=== PATIENT | female | born 1995 | race Caucasian/White ===

== ENCOUNTER 2021-08-24 16:17 | Outpatient (CLI) | payer MEDICAID, SELFPAY ==
[2021-08-27 19:05] LABS: HPV Reflexed? NOT INDICATED
== END 2021-08-24 23:59 | disposition short-term general hospital (02) ==
LOC: LABSPEC 16:18
PROVIDERS: PCP Pediatrics; Visit Provider Obstetrics & Gynecology
DX: Z12.4 Encounter for screening for malignant neoplasm of cervix (principal)
CPT/HCPCS: 88175; G0145

== ENCOUNTER 2021-09-17 14:37 | Outpatient (CLI) | payer MEDICAID, SELFPAY ==
[2021-09-17 16:04] LABS: Estradiol 32.7 pg/mL; Follicle Stimulating Hormone 6.9 mIU/mL; Luteinizing Hormone 4.3 mIU/mL; Prolactin 10.3 ng/mL
[2021-09-24 15:08] LABS: Testosterone, % Free 1.57 % (0.50-2.80); Testosterone, Free 0.19 ng/dL (0.10-0.85); Testosterone, Total 12 ng/dL (13-71)
[2021-09-24 17:21] LABS: Anti-Mullerian Hormone,Serum 3.68 ng/mL (.)
== END 2021-09-17 23:59 | disposition home or self-care (01) ==
LOC: WOBLAB 14:39
PROVIDERS: PCP Pediatrics; Visit Provider Obstetrics & Gynecology
DX: N91.2 Amenorrhea, unspecified (principal)
CPT/HCPCS: 36415; 82627; 82670; 83001; 83002; 83516; 84146; 84402; 84403; 82626

== ENCOUNTER 2021-10-24 14:11 | Emergency (ER) | payer MEDICAID, SELFPAY ==
[2021-10-24 14:11] VITALS: BP 129/87; PULSE 95; RESP 16; TEMP 36.1; O2SAT 98; BMI 32.3
--- NOTE | 2021-10-24 14:14 | RAD_ITS ---
STUDY: X-RAY - LEFT ANKLE REASON FOR EXAM: Female, 26 years old. PAIN INJURY TECHNIQUE: 3 view(s) of the ankle. COMPARISON: None. FINDINGS: Normal visualized distal tibia and fibula. Normal medial and lateral malleoli. Normal tibiotalar articulation and ankle mortise. Normal visualized talus and calcaneus. The visualized subtalar, talonavicular, calcaneocuboid and tarsal articulations are normal. Lateral soft tissue swelling consistent with ligamentous injury. RAD/Ankle min 3 Views IMPRESSION: No acute fracture or dislocation. Lateral soft tissue swelling consistent with ligamentous injury. Electronically Signed: Suresh Ko MD at 15:02 EDT ,
--- NOTE | 2021-10-24 15:21 | EX.ED.DYSGE1 ---
HPI History of Present Illness Chief Complaint: Lower Extremity Injury Informant: patient Onset/Context/Timing Onset: Yesterday Worsened by: use Relieved by: rest Associated Symptoms Associated Symptoms: none Narrative Narrative: She complains of pain to the lateral malleolus. No other injuries.Patient rolled her left ankle last night when she was going down steps. Prior similar symptoms: No Recent Illness/Hospitalization: No PFSH PFSH Home Medications sertraline 100 mg tablet 100 mg PO DAILY 06/12/21 [History Last Taken Unknown] Allergy/AdvReac Type Severity Reaction Status Date / Time No Known Allergies Allergy Verified 10/24/21 14:13 Social History Smoking Status: Never smoker ROS ROS ED Constitutional Constitutional ED: Denies fever(s) Eyes Eyes: Denies change in vision ENT ENT ED: Denies ear pain Cardiovascular Cardiovascular: Denies chest pain Respiratory/Chest Respiratory/Chest: Denies dyspnea Gastrointestinal Gastrointestinal: Denies abdominal pain Genitourinary Genitourinary ED: Denies dysuria Musculoskeletal Musculoskeletal: Reports arthralgias Integumentary Denies rash Neurologic Neurologic: Denies headache(s) Psychiatric Psychiatric: Denies depression Endocrine Endocrinology: Denies polyuria Allergic/Immunologic Allergic/Immunologic ED: Denies urticaria EXAM Physical Exam Const Vital Signs: 10/24/21 14:11 Temperature 96.9 F L Temperature Source Temporal Pulse Rate 95 Respiratory Rate 16 Blood Pressure 129/87 H Blood Pressure Mean 101 Pulse Ox 98 Oxygen Delivery Method Room Air Positive well nourished and well developed General Appearance ED: well developed HEENT Negative for trauma Eyes EOMs intact bilaterally Neck supple Resp normal respiratory effort Cardio regular rate Extremity Extremity Narrative: Left lateral malleolus tenderness General Extremety ED: Yes tenderness Neuro oriented x3 and no sensory deficits noted Sensorium / Orientation: alert Motor Exam: strength 5/5 throughout Psych mental status grossly normal Skin no rashes or lesions noted MDM MDM MDM Narrative Medical decision making narrative: X-rays reviewed by the radiologist and myself show no sign of fracture or other acute abnormalities. Patient will be treated with a Aircast, crutches, rest, ice, elevate, Motrin. Outpatient follow-up. Impression #1 left ankle sprain Radiography Chest X-Ray - ED: Read by ED Physician Diagnostic Testing: Clinical Impression(s) from Imaging Studies Ankle X-Ray 10/24/21 14:14 IMPRESSION: No acute fracture or dislocation. Lateral soft tissue swelling consistent with ligamentous injury. Electronically Signed: Suresh Ko MD at 15:02 EDT , Discharge Plan Triage Chief Complaint: Lower Extremity Injury ED Provider: Fadi Valentino Dx/Rx/DC Orders Instructions: ED Ankle Sprain (Adult) Prescriptions: No Action sertraline [Zoloft] 100 mg tablet 100 mg PO DAILY RF: 0 Primary Care Provider: Care Physician,No Primary Referrals: Massimo Marin MD [STAFF PHYSICIAN] - Disposition Disposition: Home, Self Care
[2021-10-24] MEDS: Ibuprofen 600 MG Tablet PO (16:08)
== END 2021-10-24 16:09 | disposition home or self-care (01) ==
PROVIDERS: Emergency Provider Emergency Medicine; Visit Provider Emergency Medicine
DX: S93.402A Sprain of unspecified ligament of left ankle, initial encounter (principal); X50.1XXA Overexertion from prolonged static or awkward postures, initial encounter; Y93.9 Activity, unspecified; Y92.9 Unspecified place or not applicable
CPT/HCPCS: 73610; 99284

== ENCOUNTER → 2022-01-04 | Outpatient (CLI) | payer MEDICAID, SELFPAY ==
--- NOTE | 2022-01-04 | EMB_PTH ---
PATIENT: KAT SUAREZ LOC: [facility] U#:[id number] AGE/SX: 26/ ROOM: RE01/04/[address]: Dr. Nessa Arriaza DO : 1995 BED: DIS: 01/04/2022 SPEC #: [id number] RECD: 01/04/22 13:45 STATUS: FAUSTINA REAntonio #: [id number] BELKYS: 01/04/22 00:[address]: Nessa Arriaza DEPT: SURGICAL PATHOLOGY RECD BY: Rahul Navarrete ENTERED: 01/04/22 13:46 SP TYPE: ENDOM BX/C KENDAL DR: No Primary Care Phys Tissues: Endometrium, NOS Procedures: Surgery Specimen Level IV HEADER OPERATION: Endometrial biopsy PRE-OP DIAGNOSIS: Abnormal uterine bleeding TISSUE SUBMITTED: Endometrial biopsy MICROSCOPIC DIAGNOSIS Endometrium, biopsy: Weakly proliferative endometrium with stromal and focal glandular breakdown. AM:dona 01/05/2022 MICROSCOPIC DESCRIPTION Slides are reviewed. GROSS DESCRIPTION Received in fixative is one container labeled with the patient's name and designated endometrial biopsy. The specimen consists of multiple fragments of hemorrhagic soft tissue that in aggregate measure 2 x 1.5 x 0.1 cm. The specimen is totally submitted in one cassette. / SJ:dona 01/04/2022 TC:5 CPT: 68665
== END | disposition home or self-care (01) ==
LOC: LABSPEC 11:57
PROVIDERS: Visit Provider Student in an Organized Health Care Education/Training Program
DX: N93.9 Abnormal uterine and vaginal bleeding, unspecified (principal)
CPT/HCPCS: 88305

== ENCOUNTER → 2023-03-09 | Outpatient (CLI) | payer MEDICAID, SELFPAY ==
[2023-03-09 11:52] LABS: hCG Titer Quant., Serum < 1 mIU/mL (1-3)
== END | disposition home or self-care (01) ==
LOC: WOBLAB 10:59
PROVIDERS: Visit Provider Nurse Practitioner Women's Health
DX: R10.2 Pelvic and perineal pain (principal)
CPT/HCPCS: 36415; 84702

== ENCOUNTER 2024-01-12 00:19 | Emergency (ER) | payer MEDICAID, SELFPAY ==
[2024-01-12 00:19] VITALS: BP 140/93; PULSE 110; RESP 17; TEMP 36.4; O2SAT 97; BMI 26.6
--- NOTE | 2024-01-12 01:13 | EDS_ITS ---
HPI History of Present Illness Chief Complaint: Dental Informant: patient and spouse/S.O. Narrative Narrative: Patient is a 28-year-old female with past medical history of anxiety/depression. She reports that she also has a history of bad teeth. She states that she has had left lower jaw discomfort for the past 1 to 2 weeks but in the last 24 hours symptoms have worsened. She denies any trauma any fevers or chills any difficulty breathing or swallowing but with worsening pain she has concern for infection and therefore comes in for evaluation. [facility] Medical History Acute otitis media, left Home Medications ?Medication ?Instructions ?Recorded ?Last Taken ?Type sertraline 100 mg tablet (Zoloft) 100 mg PO DAILY 06/12/21 Unknown History bupropion HCl 300 mg 24 hr tablet, 300 mg PO QAM 02/18/23 Unknown History extended release mupirocin 2 % topical ointment 1 applic topical TID #15 grams 02/18/23 Unknown Rx oxycodone-acetaminophen 5 mg-325 1 tab PO Q6H PRN pain 3 days #12 01/12/24 Unknown Rx mg tablet (Percocet) tabs penicillin V potassium 500 mg 500 mg PO 4X/DAY #40 tabs 01/12/24 Unknown Rx tablet Allergy/AdvReac Type Severity Reaction Status Date / Time No Known Allergies Allergy Verified 02/18/23 12:38 Social History Smoking Status: Never smoker ROS [facility] ED Constitutional Constitutional ED: Denies chills or fever(s) ENT ENT ED: Reports other Details: Positive dental pain Cardiovascular Cardiovascular: Denies chest pain Respiratory/Chest Respiratory/Chest: Denies cough or dyspnea Gastrointestinal Gastrointestinal: Denies abdominal pain, diarrhea, nausea or vomiting Genitourinary Genitourinary ED: Denies dysuria Musculoskeletal Musculoskeletal: Denies myalgias Integumentary Denies rash Neurologic Neurologic: Denies headache(s) Hematologic/Lymphatic Hematologic/Lymphatic: Denies easy bleeding or easy bruising EXAM Physical Exam Const Vital Signs: 01/12/24 00:19 01/12/24 01:25 Temperature 97.6 F L 97.1 F L Temperature Source Temporal Pulse Rate 110 H 100 Respiratory Rate 17 18 Blood Pressure 140/93 H 136/70 H Blood Pressure Mean 108 92 Pulse Ox 97 96 Oxygen Delivery Method Room Air Positive well nourished and well developed General Appearance ED: well developed; Negative for pallor HEENT Reports moist mucous membranes HEENT Narrative: No tongue or lip swelling no oral lesions no airway edema or compromise. Patient does have soft tissue swelling along the left lower jaw with tenderness to palpation at the site without overlying erythema or warmth. No signs of ANUG noted. No obvious dental abscess present. Eyes PERRL and EOMs intact bilaterally Neck supple Neck Narrative: Positive anterior cervical adenopathy No brawny edema in the submental space to suggest Otis's angina Resp normal respiratory effort and clear to auscultation bilaterally Cardio regular rate and regular rhythm Extremity normal to inspection Neuro oriented x3, CN's II-XII intact bilaterally and no sensory deficits noted Sensorium / Orientation: alert Motor Exam: strength 5/5 throughout Psych mental status grossly normal Skin no rashes or lesions noted and no wounds General Skin Exam: Negative for jaundice or pallor MDM MDM MDM Narrative Medical decision making narrative: Patient presented to the ER hypertensive but otherwise with stable vitals. She reported few weeks of mild dental discomfort and worse in the last 24-hour. Differential diagnosis is for dental abscess versus Otis angina versus pharyngitis versus ANUG. Patient's exam does not show signs of ANUG or any brawny edema in the submental space to suggest Otis's angina. Also patient has no physical exam findings in the posterior pharynx to suggest infection. With the increased pain history of dental caries and mild soft tissue swelling to the left jaw this is most likely the start of an underlying dental infection. As there is no obvious abscess there is no need for incision and drainage and as there is no signs of systemic infection there is no need for it imaging or laboratory studies. Patient replaced on antibiotics and is otherwise safe for discharge History & Record Review Discussion w/independent historian: Patient and Significant other Discharge Plan Triage Chief Complaint: Dental ED Provider: Eugene Snyder Dx/Rx/DC Orders Clinical Impression: Dental infection, Pain, dental, Anxiety and depression Instructions: Dental Abscess, ED Dental Pain Prescriptions: New penicillin V potassium 500 mg tablet 500 mg PO 4X/DAY Qty: 40 0RF oxycodone-acetaminophen [Percocet] 5-325 mg tablet 1 tab PO Q6H PRN (Reason: pain) 3 Days Qty: 12 0RF No Action sertraline [Zoloft] 100 mg tablet 100 mg PO DAILY bupropion HCl 300 mg tablet extended release 24 hr 300 mg PO QAM mupirocin 2 % ointment 1 applic topical TID Qty: 15 0RF Primary Care Provider: Care Physician,No Primary Referrals: Care Physician,No Primary [Primary Care Provider] - Activity Restrictions/Additional Instructions: Please follow-up with your dentist for repeat evaluation and for further treatment options. Take the antibiotic as directed to resolve the infection and return to the ER should you have any further concerns Print Language: Nigerien Disposition Disposition: Home, Self Care Discharge Date/Time: 01/12/24 01:26
[2024-01-12] MEDS: Penicillin Vk 250 MG Tablet 500 MG PO (01:23)
[2024-01-12] MEDS: Oxycodone/Apap 5/325 Tablet PO (01:23)
[2024-01-12 01:25] VITALS: BP 136/70; PULSE 100; RESP 18; TEMP 36.2; O2SAT 96
== END 2024-01-12 01:26 | disposition home or self-care (01) ==
PROVIDERS: Emergency Provider Emergency Medicine; Visit Provider Emergency Medicine
DX: K04.7 Periapical abscess without sinus (principal); F41.9 Anxiety disorder, unspecified; F32.A Depression, unspecified; Z79.899 Other long term (current) drug therapy; K08.89 Other specified disorders of teeth and supporting structures
CPT/HCPCS: 99282

== ENCOUNTER 2024-01-29 14:26 | Emergency (ER) | payer MEDICAID, SELFPAY ==
--- NOTE | 2024-01-29 14:28 | ED.RN ---
Pt here for tooth pain while out to eat, states I have a hole in my tooth. Pt states she can't see dentist at [facility] due to missed appts. After hearing ED has a current wait for an ED room, pt decided to try urgent care. Pt voices understanding to return if needed.
== END 2024-01-29 14:28 | disposition left against medical advice (07) ==
LOC: ED 14:40
DX: Z00.00 Encounter for general adult medical examination without abnormal findings (principal)

== ENCOUNTER 2024-03-16 06:31 | Emergency (ER) | payer MEDICAID, SELFPAY ==
[2024-03-16 06:33] VITALS: BP 137/67; PULSE 100; RESP 16; TEMP 36.6; O2SAT 99
[2024-03-16 07:03] LABS: Bacteria 0 SEEN /hpf (None Seen); Mucous, Urine 0 SEEN /hpf (<or=2+); Red Blood Cells-Urine 0 SEEN /hpf (0-5); Squamous Epithelial Cells - UA 0 SEEN /hpf (5-10); White Blood Cells 0 SEEN /hpf (0-5)
[2024-03-16 07:13] LABS: Color, Urine Yellow (Yellow); Glucose, Dipstick Normal (Normal); Ketone-Dipstick Negative (Negative); Leukocyte Esterase-Dipstick Negative /ul (Negative); Nitrite-Dipstick Negative (Negative); Occult Blood-Urine 250 /ul (Negative); Protein-Dipstick 15 mg/dl (Negative); Specific Gravity, Urine 1.015 (1.002-1.030); Urine Bilirubin Dipstick Negative (Negative); Urine Clarity Clear (Clear); Urine Urobilinogen Normal (Normal); Urine pH 6.5 (5.0 - 8.0)
[2024-03-16 07:21] LABS: Absolute Lymphocyte Count 2.75 X10^3/uL (0.83-4.51); Absolute Neutrophil Count 7.8 X10^3/uL (2.0-7.7); Basophil% 0.8 % (0-1); Eosinophil# 0.36 X10^3/uL; Hematocrit 41.3 % (37-47); Hemoglobin 13.4 g/dL (12.0-15.0); Lymphocyte # 2.75 X10^3/ul (0.83-4.51); Lymphocyte % 23.3 % (19-41); Mean Corp Hgb Conc 32.4 g/dL (32-36); Mean Corpuscular Hgb 27.3 pg (27.0-32.0); Mean Corpuscular Volume 84.3 fL (81-99); Mean Platelet Vol. 9.3 fl (6.2-12.0); Monocyte# 0.75 X10^3/uL; Monocyte% 6.4 % (0-10); NRBC Flagged by Analyzer 0 % (0-5); Neutrophil # 7.79 X10^3/uL (2.7-7.7); Platelet Count 425 K/mm3 (150-450); RBC Distribution Width CV 14.7 % (11.6-14.6); RBC Distribution Width SD 45.2 fl (35.1-43.9); White Blood Count 11.8 K/mm3 (4.4-11.0)
--- NOTE | 2024-03-16 07:33 | ED.VIS.FEGU ---
HPI HPI - Female History of Present Illness Chief Complaint: Vag Bld, Preg Informant: patient Narrative Narrative: Patient is a 28-year-old female G3, P1 presenting with vaginal bleeding concern for miscarriage. Patient's last menstrual period was February 07. She had a positive test on March 07. She noticed as crampy abdominal pain and vaginal bleeding started at 1 AM. States the pain is mostly in her right side. States she has some pain that radiates down to her thigh and into her toe. She is having some associated back pain. She has some mild dysuria but states is more pelvic pain with urination and not actual painful urination. She denies any passage of clots. States the bleeding has been bright red. She feels like it is of beginning of her period. Denies any fever or lightheadedness. Denies any back injuries. No other complaints or concerns at this time. Has not established yet for this but is planning on following with Dr. Noel Schwartz. [facility] Medical History Acute otitis media, left Allergy/AdvReac Type Severity Reaction Status Date / Time No Known Allergies Allergy Verified 03/16/24 06:33 Social History Smoking Status: Never smoker ROS ROS ED Constitutional Constitutional ED: Denies chills or fever(s) Gastrointestinal Gastrointestinal: Reports abdominal pain; Denies nausea or vomiting Genitourinary Genitourinary ED: Reports other Details: vaginal bleeding ; Denies dysuria Musculoskeletal Musculoskeletal: Reports other Details: low back pain , right thigh pain Integumentary Denies rash Neurologic Neurologic: Denies headache(s) Psychiatric Psychiatric: Denies anxiety Hematologic/Lymphatic Hematologic/Lymphatic: Denies easy bleeding or easy bruising EXAM Physical Exam Const Vital Signs: 03/16/24 06:33 Temperature 97.9 F Temperature Source Temporal Pulse Rate 100 Respiratory Rate 16 Blood Pressure 137/67 H Blood Pressure Mean 90 Pulse Ox 99 Oxygen Delivery Method Room Air Positive well nourished and well developed General Appearance ED: well developed and NAD; Negative for pallor HEENT Reports moist mucous membranes Neck supple Resp normal respiratory effort Cardio regular rate and regular rhythm GI normal to inspection, nondistended, normoactive bowel sounds and soft to palpation GI Narrative: Very mild tenderness palpation in the suprapubic/right lower quadrant Narrative: Chemistry Technologist pelvic exam performed. Normal external genitalia. Patient does have a clot in the cervix which is removed. Very mild oozing of pink blood present. Os appears closed. No cervical motion tenderness. No adnexal tenderness on exam. Back/Spine no CVA tenderness Extremity normal to inspection and full ROM Neuro oriented x3 Sensorium / Orientation: alert Motor Exam: Negative for general weakness Psych mental status grossly normal Skin no rashes or lesions noted General Skin Exam: Negative for pallor MDM MDM MDM Narrative Medical decision making narrative: Patient evaluated for vaginal bleeding in early . She is 5 weeks 2 days by last menstrual period. Chart review shows that she is Rh+ and does not require RhoGAM. hCG is elevated at 10,524. Bedside ultrasound performed by myself shows single intrauterine gestation with yolk sac and pole. I do not appreciate a heartbeat at this time but it is likely too early to see this. Urinalysis is not consistent infection. Case is discussed with HOLTER TECHNICIAN on-call, Dr. Castle. Patient is given outpatient prescription for repeat quant on Monday (48 hours from now). Counseled on pelvic rest until follow-up. Will follow-up outpatient. Given return precautions. Patient verbalized agreement understand this plan. At this time abdominal exam is benign and she is hemodynamically stable. Low suspicion for hemorrhagic shock, active miscarriage based on close cervix or ectopic based on ultrasound with no free fluid and intrauterine gestation appreciated. Lab Data Attestation: I reviewed the patient's lab results. Labs: Laboratory Results - last 24 hr 03/16/24 03/16/24 07:00 07:16 WBC 11.8 H RBC 4.90 Hgb 13.4 Hct 41.3 MCV 84.3 MCH 27.3 MCHC 32.4 RDW Std Deviation 45.2 H RDW Coeff of Wilfredo 14.7 H Plt Count 425 MPV 9.3 Immature Gran % (Auto) 0.500 Neut % (Auto) 66.0 Lymph % (Auto) 23.3 [place] % (Auto) 6.4 Eos % (Auto) 3.0 Baso % (Auto) 0.8 Absolute Neuts (auto) 7.8 H Absolute Lymphs (auto) 2.75 Nucleated RBC % 0 HCG, Quant 67895 H Urine Color Yellow Urine Clarity Clear Urine pH 6.5 Ur Specific [place] 1.015 Urine Protein 15 H Urine Glucose (UA) Normal Urine Ketones Negative Urine Occult Blood 250 H Urine Nitrite Negative Urine Bilirubin Negative Urine Urobilinogen Normal Ur Leukocyte Esterase Negative Urine RBC 0 SEEN Urine WBC 0 SEEN Ur Squamous Epith Cells 0 SEEN Urine Bacteria 0 SEEN Urine Mucus 0 SEEN Discharge Plan Triage Chief Complaint: Vag Bld, Preg ED Provider: Ayana Irene Dx/Rx/DC Orders Clinical Impression: Vaginal bleeding affecting early Instructions: Bleeding During Early , Miscarriage Threatened Other Ambulatory Orders: HCG BETA-SUBUNIT QUANT. (Routine) Timeframe: 20240318 Facility: [facility] - Location: Laboratory Ordered By: Dr. Ayana Irene Primary Care Provider: Care Physician,No Primary Referrals: Amanda Hill DO [Med Staff - Active Staff] - Care Physician,No Primary [Primary Care Provider] - Activity Restrictions/Additional Instructions: Call the office on Monday to schedule appointment. They will try to get you in for an ultrasound later in the week. Given given a prescription for repeat blood work. Please go on Monday or Monday for this. Avoid intercourse until you follow-up with HOLTER TECHNICIAN. Drink plenty fluids. If you have progression worsening symptoms please return to the emergency room. Print Language: Bangladeshi Disposition Disposition: Home, Self Care Discharge Date/Time: 03/16/24 09:27
[2024-03-16 08:04] LABS: hCG Titer Quant., Serum 10524 mIU/mL (1-3)
== END 2024-03-16 09:27 | disposition home or self-care (01) ==
PROVIDERS: Emergency Provider Emergency Medicine; Visit Provider Emergency Medicine
DX: O20.9 Hemorrhage in early pregnancy, unspecified (principal); Z3A.01 Less than 8 weeks gestation of pregnancy
CPT/HCPCS: 36415; 81001; 84702; 85025; 99282

== ENCOUNTER → 2024-04-15 | Outpatient (CLI) | payer MEDICAID, SELFPAY ==
[2024-04-15 12:37] LABS: Absolute Lymphocyte Count 1.48 X10^3/uL (0.83-4.51); Absolute Neutrophil Count 5.8 X10^3/uL (2.0-7.7); Basophil# 0.06 X10^3/uL; Basophil% 0.7 % (0-1); Eosinophils% 3.6 % (0-5); Hematocrit 38.4 % (37-47); Hemoglobin 12.6 g/dL (12.0-15.0); Lymphocyte # 1.48 X10^3/ul (0.83-4.51); Lymphocyte % 17.6 % (19-41); Mean Corp Hgb Conc 32.8 g/dL (32-36); Mean Corpuscular Hgb 28.1 pg (27.0-32.0); Mean Corpuscular Volume 85.7 fL (81-99); Mean Platelet Vol. 9.7 fl (6.2-12.0); Monocyte# 0.69 X10^3/uL; Monocyte% 8.2 % (0-10); NRBC Flagged by Analyzer 0 % (0-5); Neutrophil # 5.82 X10^3/uL (2.7-7.7); Neutrophil % 69.2 % (47-70); Platelet Count 392 K/mm3 (150-450); RBC Distribution Width CV 14.8 % (11.6-14.6); RBC Distribution Width SD 46.8 fl (35.1-43.9); Red Blood Count 4.48 M/mm3 (4.2-5.4); White Blood Count 8.4 K/mm3 (4.4-11.0)
[2024-04-15 13:39] LABS: HIV - WCH Non-Reactive (Nonreactive); Hepatitis B Surface Antigen Non-Reactive (Nonreactive); Hepatitis C Antibody Non-Reactive (Nonreactive); Rubella IgG Reactive (Nonreactive); Syphilis Antibodies Non-reactive
[2024-04-15 15:23] LABS: Amphetamine Urine VISTA NEGATIVE (<1000 ng/mL); Barbiturate Urine VISTA NEGATIVE (< 200 ng/mL); Benzodiazepine Urine VISTA NEGATIVE (< 200 ng/mL); Cocaine Urine VISTA NEGATIVE (< 300 ng/mL); Ecstacy Urine VISTA NEGATIVE (< 500 ng/mL); Methadone Urine VISTA NEGATIVE (< 300 ng/mL); PCP Urine VISTA NEGATIVE (< 25 ng/mL); THC Urine VISTA NEGATIVE (< 50 ng/mL); Vista UDS pH Range 5
[2024-04-18 06:10] LABS: Chlamydia By Nucleic Acid AMP Negative (Negative); Gonococcus By Nucleic Acid AMP Negative (Negative)
== END | disposition home or self-care (01) ==
PROVIDERS: Referring Provider Obstetrics & Gynecology; Visit Provider Obstetrics & Gynecology
DX: O99.320 Drug use complicating pregnancy, unspecified trimester (principal); F12.90 Cannabis use, unspecified, uncomplicated; O09.90 Supervision of high risk pregnancy, unspecified, unspecified trimester; Z3A.00 Weeks of gestation of pregnancy not specified
CPT/HCPCS: 36415; 80307; 85025; 86703; 86762; 86780; 86803; 86850; 86900; 86901; 87086; 87088; 87340; 87491; 87591

== ENCOUNTER → 2024-05-13 | Outpatient (CLI) | payer MEDICAID, SELFPAY | END | disposition home or self-care (01) | LOC: WOBLAB 15:33 | PROVIDERS: Referring Provider Advanced Practice Midwife; Visit Provider Advanced Practice Midwife | DX: Z34.01 Encounter for supervision of normal first pregnancy, first trimester (principal) | CPT/HCPCS: 36415 ==

== ENCOUNTER 2024-05-30 09:19 | Emergency (ER) | payer MEDICAID, SELFPAY ==
[2024-05-30 09:21] VITALS: BP 118/70; PULSE 109; RESP 18; TEMP 36.9; O2SAT 99; BMI 28.8
--- NOTE | 2024-05-30 10:14 | EDS_ITS ---
HPI History of Present Illness Chief Complaint: Nausea/Vomiting Informant: patient Narrative Narrative: 17-week gestation followed by Dr. Nuñez presents to the history productive cough fever muscle aches. Sick contacts with sick mother's family who had pneumonia. she had 1 emesis yesterday no hematemesis. No diarrhea. No urinary symptoms. No abdominal pain. No allergies. On and off sickness this fall. PFSH PFS Medical History 16 weeks gestation of Kidney infection Hemorrhagic shock complicated by shock Elective Hemorrhage following tonsillectomy and adenoidectomy Acute otitis media, left Home Medications ?Medication ?Instructions ?Recorded ?Last Taken ?Type multivitamin no.47-iron fum 27 1 cap PO DAILY 04/05/24 Unknown History mg-folate no.1 1 mg-dha 300 mg capsule (PNV-DHA) benzonatate 200 mg capsule 200 mg PO TID PRN cough #20 caps 05/28/24 Unknown Rx ondansetron 4 mg disintegrating 4 mg PO Q8H PRN PRN Nausea #10 tabs 05/30/24 Unknown Rx tablet Allergy/AdvReac Type Severity Reaction Status Date / Time No Known Allergies Allergy Verified 05/30/24 09:20 Surgical History H/O emergency section History of cholecystectomy H/O dilation and curettage [place] teeth extracted Social History adopted: Yes (after parents ) household members: spouse and children number of children: 1 current occupational status: unemployed current occupational exposures/hazards: No pets and animals: Yes pets and animals: dog(s) history of recent travel: No sexually active: Yes Smoking Status: Current every day smoker tobacco type: cigarettes quit status: considering quitting alcohol intake: never substance use type: marijuana well-balanced diet: daily or most days caffeine: No eating out: 1-3 times/week during the past year weight has: decreased > 10 lbs what type of physical activity do you participate in: walking frequency: daily duration: 45-60 minutes/day jessika/congregation: [employer] seatbelt use: sometimes do you feel safe at home: Yes additional social history: Dwayne ALMEIDA ED Constitutional Constitutional ED: Reports fever(s); Denies chills or sweats Eyes Eyes: Denies change in vision ENT ENT ED: Denies dysphagia or sore throat Cardiovascular Cardiovascular: Denies chest pain, leg edema, palpitations or racing heartbeat Respiratory/Chest Respiratory/Chest: Reports cough; Denies dyspnea or dyspnea on exertion Gastrointestinal Gastrointestinal: Reports vomiting; Denies abdominal pain, diarrhea or nausea Genitourinary Genitourinary ED: Denies dysuria, hematuria or urinary frequency Musculoskeletal Musculoskeletal: Denies back pain, extremity pain or neck pain Integumentary Denies rash or wounds Neurologic Neurologic: Denies headache(s), paresthesias or weakness EXAM Physical Exam Const Vital Signs: 05/30/24 09:21 05/30/24 11:20 05/30/24 12:44 Temperature 98.4 F 97.8 F Temperature Source Oral Pulse Rate 109 H 72 92 Respiratory Rate 18 18 16 Blood Pressure 118/70 128/75 H 128/75 H Blood Pressure Mean 86 92 92 Pulse Ox 99 98 Oxygen Delivery Method Room Air Positive well nourished and well developed General Appearance ED: well developed and NAD HEENT Reports moist mucous membranes normocephalic and atraumatic Eyes EOMs intact bilaterally and conjunctivae normal General Eye ED: Yes normal appearance of both eyes Neck no lymphadenopathy and supple General: Negative for tenderness Chest Wall Chest: Negative for tenderness Resp normal respiratory effort and normal air movement Effort and Inspection: symmetric chest movement; Negative for respiratory distress Cardio regular rhythm and no murmurs Rate: tachycardic Peripheral Pulses: pulses 2+ throughout GI normal to inspection, nondistended, normoactive bowel sounds and non-tender Palpation: Negative for guarding or rebound tenderness present Back/Spine no CVA tenderness and no thoracic nor lumbar tenderness Extremity normal to inspection General Extremety ED: Negative for edema or tenderness General Extremity: Negative for edema Neuro oriented x3 and no sensory deficits noted Sensorium / Orientation: awake and alert Skin no rashes or lesions noted and no wounds MDM MDM MDM Narrative Medical decision making narrative: Interventions / MDM: Differential diagnosis: Viral URI, second trimester , vomiting in pregn tho, dehydration Diagnosis considered but do not suspect: Pneumonia however chest x-ray negative My EKG interpretation: N/A Imaging independently reviewed and interpreted by myself: 2 view chest x-ray: No acute process. External documents reviewed: N/A Test considered but not ordered:N/A ED course: Afebrile in the ED slight tachycardia at 109 on triage. Nontoxic. Triage blood draws were obtained, will check urine chest x-ray nasal swab sent for further evaluation. Gentle fluids and Zofran ordered. Bedside ultrasound positive movement heart tone 141. Chest x-ray negative. Nasal swabs negative. Discussed viral syndrome with the patient. Nausea improved. Heart rate improved. Labs had a white count 14.5. Creatinine 0.39. Urine was contaminated with squamous cells with 25 leukocytes. Sent for urine cultures. Prescription Zofran to her pharmacy. She continue oral fluids. She will monitor symptoms. Outpatient follow-up. All questions were answered. Re-evaluation: stable Disposition discussed with patient/family/significant other: Patient Case discussed with consulting clinician: N/A This note was generated with Magin dictation software. It may contain incorrect words, spelling, and punctuation that were not noted in checking the note before signing. Lab Data Attestation: I reviewed the patient's lab results. Labs: Laboratory Results - last 24 hr 05/30/24 05/30/24 10:05 10:30 WBC 14.5 H RBC 3.82 L Hgb 11.4 L Hct 33.3 L MCV 87.2 MCH 29.8 MCHC 34.2 RDW Std Deviation 44.4 H RDW Coeff of Wilfredo 14.0 Plt Count 380 MPV 9.4 Immature Gran % (Auto) 1.400 H Neut % (Auto) 78.4 H Lymph % (Auto) 10.5 L [place] % (Auto) 5.6 Eos % (Auto) 3.6 Baso % (Auto) 0.5 Absolute Neuts (auto) 11.4 H Absolute Lymphs (auto) 1.52 Nucleated RBC % 0 Sodium 138 Potassium 3.3 L Chloride 108 H Carbon Dioxide 24.0 Anion Gap 6 BUN 6 L Creatinine 0.39 L Estim Creat Clear Calc 178.67 Est GFR (MDRD) Af Amer 254 Est GFR (MDRD) Non-Af 210 BUN/Creatinine Ratio 15.5 Glucose 92 Calcium 8.8 Urine Color Yellow Urine Clarity Sl. Cloudy Urine pH 6.5 Ur Specific [place] 1.015 Urine Protein 15 H Urine Glucose (UA) Normal Urine Ketones 5 H Urine Occult Blood 10 H Urine Nitrite Negative Urine Bilirubin Negative Urine Urobilinogen 1 H Ur Leukocyte Esterase 25 H Urine RBC 0 SEEN Urine WBC 0 SEEN Ur Squamous Epith Cells 10-25 SEEN Urine Bacteria 0 SEEN Urine Mucus 0 SEEN Discharge Plan Triage Chief Complaint: Nausea/Vomiting ED Provider: Boby West Dx/Rx/DC Orders Clinical Impression: Viral URI with cough, 17 weeks gestation of , Vomiting during Instructions: 2nd Trimester Adapt, ED URI, Viral, No Abx (Adult) Prescriptions: New ondansetron 4 mg tablet,disintegrating 4 mg PO Q8H PRN PRN (Reason: Nausea) Qty: 10 0RF No Action PNV-DHA 27 mg iron-1 mg -300 mg capsule 1 cap PO DAILY benzonatate 200 mg capsule 200 mg PO TID PRN (Reason: cough) Qty: 20 0RF Primary Care Provider: Care Physician,No Primary Referrals: Amanda Hill DO [Med Staff - Active Staff] - 1-2 Weeks Care Physician,No Primary [Primary Care Provider] - Activity Restrictions/Additional Instructions: heart tone 141 by ultrasound. COVID, influenza, RSV negative. Chest x- ray negative. Labs are stable. Urine culture sent. Use nausea medicine as needed. Continue oral fluids for hydration. Print Language: [place] Rican Disposition Disposition: Home, Self Care Discharge Date/Time: 05/30/24 12:45
[2024-05-30] MEDS: Ondansetron 4 MG/2 ML Vial IV (10:22)
[2024-05-30 10:23] LABS: Absolute Lymphocyte Count 1.52 X10^3/uL (0.83-4.51); Absolute Neutrophil Count 11.4 X10^3/uL (2.0-7.7); Basophil# 0.07 X10^3/uL; Basophil% 0.5 % (0-1); Eosinophil# 0.52 X10^3/uL; Eosinophils% 3.6 % (0-5); Hematocrit 33.3 % (37-47); Hemoglobin 11.4 g/dL (12.0-15.0); Lymphocyte # 1.52 X10^3/ul (0.83-4.51); Lymphocyte % 10.5 % (19-41); Mean Corp Hgb Conc 34.2 g/dL (32-36); Mean Corpuscular Hgb 29.8 pg (27.0-32.0); Mean Corpuscular Volume 87.2 fL (81-99); Mean Platelet Vol. 9.4 fl (6.2-12.0); Monocyte# 0.81 X10^3/uL; Monocyte% 5.6 % (0-10); NRBC Flagged by Analyzer 0 % (0-5); Neutrophil # 11.42 X10^3/uL (2.7-7.7); Neutrophil % 78.4 % (47-70); Platelet Count 380 K/mm3 (150-450); RBC Distribution Width SD 44.4 fl (35.1-43.9); Red Blood Count 3.82 M/mm3 (4.2-5.4); White Blood Count 14.5 K/mm3 (4.4-11.0)
[2024-05-30] MEDS: 0.9% Normal Saline (500mL Bag) 500 ML 1000 ML IV (10:25)
--- NOTE | 2024-05-30 10:30 | RAD_ITS ---
INDICATION: cough -- shield abd, 17 wks EXAMINATION/TECHNIQUE: X-RAY - XR Chest 2 Views COMPARISON: No relevant prior comparison study available FINDINGS: LINES/DEVICES: None. LUNGS: No consolidation, edema or effusion. No pneumothorax. MEDIASTINUM AND CARDIOVASCULAR STRUCTURES: Cardiac silhouette not enlarged. Central airways and mediastinal contour are unremarkable. BONES AND SOFT TISSUES: Unremarkable. RAD/Chest PA and Lateral IMPRESSION: No radiographic evidence of acute cardiopulmonary disease. Electronically Signed: Shirlene Acharya MD at 10:46 EDT ,
[2024-05-30 10:34] LABS: Anion Gap 6 (5-15); BUN 6 mg/dL (7-18); BUN/Creat Ratio 15.5 RATIO (10-20); Calcium,Total 8.8 mg/dL (8.5-10.1); Chloride 108 mmol/L (98-107); Creatinine, Serum 0.39 mg/dL (0.55-1.02); EST Glomerular Filtration Rate 210 mL/min (>60); Est Glom Filt Rate - Afr Amer 254 mL/min (>60); Estimated Creatinine Clearance 178.67 ml/min; Glucose 92 mg/dL (74-106); Potassium 3.3 mmol/L (3.5-5.1); Sodium Level 138 mmol/L (136-145)
[2024-05-30 10:35] LABS: Bacteria 0 SEEN /hpf (None Seen); Mucous, Urine 0 SEEN /hpf (<or=2+); Red Blood Cells-Urine 0 SEEN /hpf (0-5); White Blood Cells 0 SEEN /hpf (0-5)
[2024-05-30 10:36] LABS: Color, Urine Yellow (Yellow); Glucose, Dipstick Normal (Normal); Ketone-Dipstick 5 mg/dl (Negative); Leukocyte Esterase-Dipstick 25 /ul (Negative); Nitrite-Dipstick Negative (Negative); Occult Blood-Urine 10 /ul (Negative); Protein-Dipstick 15 mg/dl (Negative); Specific Gravity, Urine 1.015 (1.002-1.030); Urine Bilirubin Dipstick Negative (Negative); Urine Clarity Sl. Cloudy (Clear); Urine Urobilinogen 1 mg/dl (Normal); Urine pH 6.5 (5.0 - 8.0)
[2024-05-30 10:43] LABS: Squamous Epithelial Cells - UA 10-25 SEEN /hpf (5-10)
[2024-05-30 11:20] VITALS: BP 128/75; PULSE 72; RESP 18
[2024-05-30 12:44] VITALS: BP 128/75; PULSE 92; RESP 16; TEMP 36.6; O2SAT 98
== END 2024-05-30 12:45 | disposition home or self-care (01) ==
PROVIDERS: Emergency Provider Emergency Medicine; Visit Provider Emergency Medicine
DX: O21.9 Vomiting of pregnancy, unspecified (principal); O99.512 Diseases of the respiratory system complicating pregnancy, second trimester; J06.9 Acute upper respiratory infection, unspecified; Z3A.17 17 weeks gestation of pregnancy; F17.210 Nicotine dependence, cigarettes, uncomplicated; O99.332 Smoking (tobacco) complicating pregnancy, second trimester; Z90.49 Acquired absence of other specified parts of digestive tract; R50.9 Fever, unspecified; O26.892 Other specified pregnancy related conditions, second trimester
CPT/HCPCS: 71046; 80048; 81001; 85025; 87086; 87631; 96361; 96374; 99283; J2405

== ENCOUNTER 2024-07-16 16:00 | Outpatient (CLI) | payer MEDICAID, SELFPAY ==
[2024-07-16 16:12] VITALS: BP 129/63; PULSE 87; RESP 18; TEMP 36.7
[2024-07-16 16:27] VITALS: BMI 29.0
[2024-07-16] MEDS: Acetaminophen 500 MG Tablet 1000 MG PO (16:50)
[2024-07-16] MEDS: cycloBENZAPRine HCl 5 MG TABLET PO (16:57)
[2024-07-16 17:03] LABS: Color, Urine Yellow (Yellow); Glucose, Dipstick Normal (Normal); Ketone-Dipstick Negative (Negative); Leukocyte Esterase-Dipstick Negative /ul (Negative); Nitrite-Dipstick Negative (Negative); Occult Blood-Urine Negative /ul (Negative); Protein-Dipstick Negative (Negative); Urine Bilirubin Dipstick Negative (Negative); Urine Clarity Clear (Clear); Urine Urobilinogen Normal (Normal)
[2024-07-16 17:35] LABS: Fetal Fibronectin Negative; Record Kit Lot#, fFN D4035
--- NOTE | 2024-07-19 07:56 | OB.TRI.NOTE ---
HPI - General HPI Narrative KAT SUAREZ, is a 28 y/o @ 23 weeks 6 days gestation who presents to L&D with back pain and lower abdominal pain. She is worried about labor. Her baby has gastroschisis and she is being followed by MFM. She denies loss of fluid, vaginal bleeding, or dec fm. Maternal Data Information ARMEN Calculator Estimated Delivery Date Method Current WG Current Estimate 11/06/24 Ultrasound #1 24w 2d Other Estimates 11/14/24 LMP (Certain) 23w 1d PFSH PFSH Medical History 16 weeks gestation of Kidney infection Hemorrhagic shock complicated by shock Elective Hemorrhage following tonsillectomy and adenoidectomy Acute otitis media, left Home Medications ?Medication ?Instructions ?Recorded ?Last Taken ?Type multivitamin no.47-iron fum 27 1 cap PO DAILY 04/05/24 Unknown History mg-folate no.1 1 mg-dha 300 mg capsule (PNV-DHA) ondansetron 4 mg disintegrating 4 mg PO Q6H PRN nausea and 07/18/24 Unknown Rx tablet vomiting #10 tabs Allergy/AdvReac Type Severity Reaction Status Date / Time No Known Allergies Allergy Verified 07/18/24 13:09 Surgical History H/O emergency section History of cholecystectomy H/O dilation and curettage [place] teeth extracted Social History adopted: Yes (after parents ) household members: spouse and children number of children: 1 current occupational status: unemployed current occupational exposures/hazards: No pets and animals: Yes pets and animals: dog(s) history of recent travel: No sexually active: Yes Smoking Status: Current every day smoker tobacco type: cigarettes quit status: considering quitting alcohol intake: never substance use type: marijuana well-balanced diet: daily or most days caffeine: No eating out: 1-3 times/week during the past year weight has: decreased > 10 lbs what type of physical activity do you participate in: walking frequency: daily duration: 45-60 minutes/day jessika/presybeterian: Jainism seatbelt use: sometimes do you feel safe at home: Yes additional social history: Dwayne History 3 Elective abortions 1 Hx Para 1 Spontaneous abortions Hx # Term Pregnancies Ectopic pregnancies Hx # Pregnancies Multiple births # of living children 1 Past Pregnancies Del. Date Name GA/Weeks Outcome Route Bth Weight Gen Labor Lgth Anesthesia Del Locatn Provider FOB 12/19/19 Nuvia 40 live - full term 6#4oz Female epidural David [place] Dwayne Delivery Date: 12/19/19 Last Updated by: Angelika Jeronimo emergency c section, decels,cord around neck, meconium Visit Details Expected Delivery Route/Plan patient counseled regarding risks/benefits of trial of labor versus repeat . ACOG/uptodate education given to patient. [] % likelihood of success per calculator TOLAC consent form signed: [] Labor Preferences- CB/BF classes: [] labor support person: [] labor intervention preferences: [] pain management options preferred: [] cut cord/dad catch: [] : [] PP control planned: [] discussed possible routes of delivery and associated risks: [] special requests: [] Plans Covid status: [] Flu vaccine: [] Tdap vaccine: [] Rhogam: [] LARC form signed: [] Problem list reviewed and updated with the most current plan of care details and appropriate orders placed. Relevant counseling for the gestational age provided. Continue routine care and follow up unless otherwise noted in visit notes/problem list details OB Flowsheet Initial Weight: Not Recorded Date <del>?</del> EGA Weight BP Urine Prot <del>?</del> Glucose FHR FuHt Pres Dilation <del>?</del> Effaced St Visit Note 04/15/24 <del>?</del> 10w 5d 134 lb 8 oz 133/74 <del>?</del> 165 <del>?</del> JV- CRL is 3.85. measuring over a week off from LMP per [email or web address] CRL measurement. new armen given. declines NIPT. Wants to consider . 05/13/24 <del>?</del> 14w 5d 140 lb 115/75 Negative <del>?</del> Negative 155 <del>?</del> KW- no vb/cramping. MFM US ordered. NIPT today. wants repeat c/s 06/14/24 <del>?</del> 19w 2d 141 lb 122/84 Negative <del>?</del> Negative 145 <del>?</del> KW- no vb/cramping. possible fm noted. US on 06/18. 06/19/24 <del>?</del> 20w 0d 140 lb 4 oz 111/71 <del>?</del> <del>?</del> SM- new diagnosis of gastroscheis- had extensive discussion and provided counseling and education 07/11/24 <del>?</del> 23w 1d 143 lb 6 oz 114/73 Negative <del>?</del> Negative 145 <del>?</del> SM- no vb lof good fm no reuglar ctx will start kalee ellington Constitutional Constitutional: Reports systems reviewed and no addt'l complaints, except as documented Gastrointestinal Gastrointestinal: Denies bloating, constipation, cramping, diarrhea, nausea or vomiting Genitourinary Genitourinary: Reports other Details: Denies vaginal odor, vaginal bleeding, or vaginal discharge ; Denies difficulty urinating or flank pain Physical Exam HEENT normocephalic Resp normal respiratory effort and normal air movement no CVA tenderness Narrative: cervix is closed/thick/high Extremity normal to inspection General Extremity: edema bilateral (trace ) NST FHR Rate Baby A Baseline: 140 Variability:: Moderate Accelerations:: 10 x 10 Decelerations:: None NST Reactive:: Appropriate for gestational age FHR Category:: Category I Assessment & Plan (1) Threatened labor: (2) Acute dehydration: (3) Second trimester : (4) Viral gastroenteritis: (5) Gastroschisis of fetus in [place] , antepartum: COMMENT: following with treatment center, planning delivery in [place]. CARMELO at 32 weeks (6) Anxiety and depression: COMMENT: restart zoloft at 50 mg (7) Cigarette smoker: COMMENT: 5 cigarettes/day (8) Marijuana use during : COMMENT: one time a week ago for nausea, random tox screens discussed (9) Hx of section: COMMENT: plan RLTCS (10) Supervision of high-risk : COMMENT: PRR, ([facility]ing [facility]), ARMEN 11/14/24, PC Nuvia, Dwayne ([id number]) : QUALIFIERS: Weeks of gestation: 23 weeks Qualified Code(s): Z3A.23 - 23 weeks gestation of COMMENT: NIPT low risk, declines carrier PLAN: Plan ffn is negative, cervix closed, ua negative pt felt better after tylenol + flexeril. ok to dc to home with pelvic rest. Charges/Coding Multi Select Codes Visit Charges Office Visit/Consults: 75280 OV L3 Est 20min Urinary/Genital Urinary/Genital CPT Codes: 15340-27 non-stress test Interp
== END 2024-07-16 17:55 | disposition home or self-care (01) ==
LOC: WPOUT 16:11 → WP 16:12
PROVIDERS: Visit Provider Obstetrics & Gynecology
DX: O99.891 Other specified diseases and conditions complicating pregnancy (principal); F12.20 Cannabis dependence, uncomplicated; Z90.49 Acquired absence of other specified parts of digestive tract; Z3A.23 23 weeks gestation of pregnancy; O99.332 Smoking (tobacco) complicating pregnancy, second trimester; F17.200 Nicotine dependence, unspecified, uncomplicated; O99.282 Endocrine, nutritional and metabolic diseases complicating pregnancy, second trimester; E86.0 Dehydration; O99.612 Diseases of the digestive system complicating pregnancy, second trimester; K52.9 Noninfective gastroenteritis and colitis, unspecified; O99.342 Other mental disorders complicating pregnancy, second trimester; F41.8 Other specified anxiety disorders; O99.322 Drug use complicating pregnancy, second trimester; M54.9 Dorsalgia, unspecified; R10.30 Lower abdominal pain, unspecified
CPT/HCPCS: 59025; 59050; 81002; 82731; 87086; 87088; 99221; G0378

== ENCOUNTER 2024-07-18 13:07 | Emergency (ER) | payer MEDICAID, SELFPAY ==
[2024-07-18 13:08] VITALS: BP 127/66; PULSE 97; RESP 16; TEMP 36.6; O2SAT 99; BMI 24.5
--- NOTE | 2024-07-18 14:10 | ED.VIS.GI ---
HPI HPI - GI History of Present Illness Chief Complaint: Nausea/Vomiting Detail of Chief Complaint: Nausea and vomiting and diarrhea since 5 AM this morning. Informant: patient Abdominal Pain/Flank Pain Onset: Today and Hours Context: Gradual Onset Timing: Continuous Nausea/Vomiting/Emesis GI Symptom: Positive for Nausea and Vomiting Onset: Today Severity: Moderate Diarrhea/Melena/Hematochezia GI Symptom: Positive for Diarrhea Onset: Today Stool Quality: Positive for Watery Severity: Mild Associated Symptoms Associated Symptoms: Negative for Dysuria, Frequency, Hematuria or Urgency Narrative Narrative: 28-year-old female 23 weeks . Prior cholecystectomy. States at 5 AM this morning started having right nausea, vomiting diarrhea. No fever or chills. No abdominal pain. No vaginal bleeding. No dysuria. Prior similar symptoms: Yes Recent Illness/Hospitalization: No PFSH PFSH Medical History 16 weeks gestation of Kidney infection Hemorrhagic shock complicated by shock Elective Hemorrhage following tonsillectomy and adenoidectomy Acute otitis media, left Home Medications ?Medication ?Instructions ?Recorded ?Last Taken ?Type multivitamin no.47-iron fum 27 1 cap PO DAILY 04/05/24 Unknown History mg-folate no.1 1 mg-dha 300 mg capsule (PNV-DHA) ondansetron 4 mg disintegrating 4 mg PO Q6H PRN nausea and 07/18/24 Unknown Rx tablet vomiting #10 tabs Allergy/AdvReac Type Severity Reaction Status Date / Time No Known Allergies Allergy Verified 07/18/24 13:09 Surgical History H/O emergency section History of cholecystectomy H/O dilation and curettage [place] teeth extracted Social History adopted: Yes (after parents ) household members: spouse and children number of children: 1 current occupational status: unemployed current occupational exposures/hazards: No pets and animals: Yes pets and animals: dog(s) history of recent travel: No sexually active: Yes Smoking Status: Current every day smoker tobacco type: cigarettes quit status: considering quitting alcohol intake: never substance use type: marijuana well-balanced diet: daily or most days caffeine: No eating out: 1-3 times/week during the past year weight has: decreased > 10 lbs what type of physical activity do you participate in: walking frequency: daily duration: 45-60 minutes/day jessika/mormonism: Gnosticist seatbelt use: sometimes do you feel safe at home: Yes additional social history: Dwayne ALMEIDA ED ROS Narrative Nausea, vomiting or diarrhea. Abdominal pain. No dysuria. No fever. Constitutional Constitutional ED: Denies chills or fever(s) ENT ENT ED: Denies ear pain Cardiovascular Cardiovascular: Denies chest pain Respiratory/Chest Respiratory/Chest: Denies cough or dyspnea Gastrointestinal Gastrointestinal: Reports diarrhea, nausea and vomiting; Denies abdominal pain, constipation or melena Genitourinary Genitourinary ED: Denies dysuria or hematuria Musculoskeletal Musculoskeletal: Denies arthralgias or back pain Integumentary Denies abscess or Abrasions Neurologic Neurologic: Denies headache(s) Psychiatric Psychiatric: Denies anxiety Endocrine Endocrinology: Denies polydipsia Hematologic/Lymphatic Hematologic/Lymphatic: Denies easy bleeding or easy bruising Allergic/Immunologic Allergic/Immunologic ED: Denies mouth swelling, tongue swelling or urticaria EXAM Physical Exam Narrative Exam Narrative: 28-year-old female vital signs are stable she is afebrile she does not look septic toxic. She is no distress. She does look dehydrated. H EENT exam pupils round reactive light. Dry mucous membranes. Posterior pharynx unremarkable. Neck nontender no lymphadenopathy. Lungs clear to auscultation. Heart regular rhythm rate about 9070 no murmur. Chest wall ribs nontender. Abdomen soft, nontender, nondistended, normal bowel sounds without peritoneal signs. No right upper or right lower quadrant tenderness. No obstruction. No hernia or mass. Moving all 4 extremities. Nontender no edema. Normal strength and range of motion. She is awake and alert. No focal motor deficits. Const Vital Signs: 07/18/24 13:08 07/18/24 15:07 07/18/24 15:41 Temperature 97.8 F Temperature Source Oral Pulse Rate 97 90 90 Respiratory Rate 16 18 18 Blood Pressure 127/66 H Blood Pressure Mean 86 Pulse Ox 99 99 98 Oxygen Delivery Method Room Air Room Air Room Air Positive well nourished and well developed; Negative for cachectic or contractures General Appearance ED: well developed and NAD; Negative for cachectic, contractures or pallor Nutritional Appearance: Negative for cachectic HEENT Reports dry mucous membranes; Denies moist mucous membranes normocephalic and atraumatic; Negative for trauma or tenderness Mouth ED: Yes dry mucous membranes Mouth: dry mucous membranes Eyes PERRL and EOMs intact bilaterally General Eye ED: Negative for pale conjunctiva Neck no lymphadenopathy, supple and no JVD General: Negative for tenderness Carotids: Negative for other Lymph Lymphatic: Negative for other Resp normal respiratory effort and clear to auscultation bilaterally Effort and Inspection: Negative for respiratory distress Auscultation: Negative for rales, rhonchi, wheezes or diminished lung sounds Cardio regular rate, regular rhythm, S1 normal heart sound, S2 normal heart sound and no murmurs Rate: Negative for bradycardia or tachycardic Rhythm: Negative for abnormal rhythm GI non-tender, non-distended and no masses Inspection: Negative for abdominal distention Auscultation: normoactive bowel sounds Palpation: soft; Negative for tender, guarding or rebound tenderness present Back/Spine no CVA tenderness General Back: Negative for CVA tenderness Cervical Spine: Negative for cervical spine tenderness Thoracic Spine / Upper Back: Negative for thoracic spinal tenderness Lumbar Spine / Lower Back: Negative for lumbar spinal tenderness Coccyx: Negative for other Extremity full ROM General Extremety ED: Negative for edema or tenderness General Extremity: Negative for edema Neuro CN's II-XII intact bilaterally and moves all extremities Sensorium / Orientation: alert, oriented to person, oriented to place and oriented to time; Negative for confused Motor Exam: strength 5/5 throughout; Negative for general weakness or strength abnormal Psych mental status grossly normal and thought process normal Attitude: No agitated Mood & Affect: Negative for depressed, anxious or tearful Skin no wounds General Skin Exam: Negative for jaundice or pallor Lesions: no lesions Rashes: no rashes Trauma: Negative for abrasion Nails: Negative for discolored MDM MDM MDM Narrative Medical decision making narrative: 20-year-old female with nausea, vomiting and diarrhea consistent with viral gastroenteritis. 24 weeks . Should be given IV fluids IV Zofran. P.o. fluid challenge. Abdomen is benign. I do not think she needs any labs or imaging. She is having no urinary symptoms. Repeat exam patient still pretty nauseated at 3:20 PM. She was given a second dose of Zofran see if she can hold down p.o. fluids. Patient doing well at 4:12 PM. Abdomen benign. Nausea resolved she will hold down p.o. fluids. She was discharged on the Zofran. Follow-up with her GIRLS TENNIS COACH to ensure she is improving. History & Record Review Discussion w/independent historian: Patient and Family Additional record(s) reviewed:: Prior inpatient record, Prior outpatient record and Prior ED visit Lab Data Attestation: I reviewed the patient's lab results. Discharge Plan Triage Chief Complaint: Nausea/Vomiting ED Provider: Tommy Weaver Dx/Rx/DC Orders Clinical Impression: Viral gastroenteritis, Second trimester , Acute dehydration Instructions: Dehydration, ED Gastroenteritis, Viral (Adult) Prescriptions: New ondansetron 4 mg tablet,disintegrating 4 mg PO Q6H PRN (Reason: nausea and vomiting) Qty: 10 0RF No Action PNV-DHA 27 mg iron-1 mg -300 mg capsule 1 cap PO DAILY Primary Care Provider: Care Physician,No Primary Referrals: Care Physician,No Primary [Primary Care Provider] - Activity Restrictions/Additional Instructions: Plenty of fluids and rest. Water, Gatorade and 7-Up. Slowly increase your diet as tolerated. If you are unable to keep fluids down return. Zofran as needed for nausea you can either swallowed or if you are to nauseated as well as dissolve on your tongue. Follow-up with your GIRLS TENNIS COACH doctor to make sure you are improving or return if you are feeling worse. Print Language: Mauritanian Disposition Disposition: Home, Self Care
[2024-07-18] MEDS: Ondansetron 4 MG/2 ML Vial IV ×2 (14:21→15:41)
[2024-07-18] MEDS: 0.9% Normal Saline (1000mL) 1,000 ML 1000 ML IV (14:21)
[2024-07-18 15:07] VITALS: PULSE 90; RESP 18; O2SAT 99
--- NOTE | 2024-07-18 15:25 | CM.ED ---
Social Work SW introduced self to patient and explained role with the hospital. Patient verified that she does not currently have a PCP. [facility] provider directory offered to patient, patient accepting of same. No further needs identified. Magalie Duncan, SEED SORTER, HAT LINER
[2024-07-18 15:41] VITALS: PULSE 90; RESP 18; O2SAT 98
[2024-07-18 16:21] VITALS: BP 124/78; PULSE 88; RESP 16; TEMP 36.6; O2SAT 99
== END 2024-07-18 16:26 | disposition home or self-care (01) ==
LOC: ED 14:27
PROVIDERS: Emergency Provider Emergency Medicine; Visit Provider Emergency Medicine
DX: O98.812 Other maternal infectious and parasitic diseases complicating pregnancy, second trimester (principal); F17.210 Nicotine dependence, cigarettes, uncomplicated; Z3A.24 24 weeks gestation of pregnancy; A08.4 Viral intestinal infection, unspecified; E86.0 Dehydration; O99.282 Endocrine, nutritional and metabolic diseases complicating pregnancy, second trimester; O99.332 Smoking (tobacco) complicating pregnancy, second trimester; Z90.49 Acquired absence of other specified parts of digestive tract
CPT/HCPCS: 96361; 96374; 96376; 99282; A4216; J2405

== ENCOUNTER 2024-07-20 08:16 | Outpatient (CLI) | payer MEDICAID, SELFPAY ==
[2024-07-20 08:29] VITALS: BP 108/57; PULSE 93
[2024-07-20 08:30] VITALS: RESP 15; TEMP 36.4; O2SAT 99
[2024-07-20 08:34] VITALS: PULSE 94; O2SAT 99
[2024-07-20 08:39] VITALS: PULSE 90; O2SAT 98
[2024-07-20 08:44] VITALS: PULSE 93; O2SAT 99
[2024-07-20 08:49] VITALS: PULSE 94; O2SAT 99
--- NOTE | 2024-07-21 06:41 | OB.TRI.PN ---
Progress Notes Date of Service: 07/20/24 Progress Note: patient seen for diarrhea in , 24 weeks. evaluation no labor, cervix closed. to ER for full evaluation Assessment & Plan (1) 24 weeks gestation of : (2) Diarrhea during :
== END 2024-07-20 09:00 | disposition home or self-care (01) ==
LOC: WPOUT 08:20 → WP 08:22
PROVIDERS: Referring Provider Obstetrics & Gynecology; Visit Provider Obstetrics & Gynecology
DX: O99.891 Other specified diseases and conditions complicating pregnancy (principal); R19.7 Diarrhea, unspecified; Z3A.24 24 weeks gestation of pregnancy
CPT/HCPCS: 99221; G0378

== ENCOUNTER 2024-07-20 09:20 | Emergency (ER) | payer MEDICAID, SELFPAY ==
[2024-07-20 09:21] VITALS: BP 100/53; PULSE 87; RESP 18; TEMP 36.9; O2SAT 100; BMI 28.3
--- NOTE | 2024-07-20 09:28 | ED.RN ---
pt came to be seen here at the ED a few days ago but left because it was so busy. C/O having N/V/D for 3 days and the chest pain started today. Pt is 24 weeks .
--- NOTE | 2024-07-20 09:44 | US_ITS ---
STUDY: SECOND AND THIRD TRIMESTER OBSTETRICAL ULTRASOUND - LIMITED REASON FOR EXAM: Female, 28 years old weight loss x2 days LMP: 01/31/2024 PRIOR ULTRASOUND: None. TECHNIQUE: Transabdominal TECHNICAL QUALITY: Adequate. FINDINGS: Despite no previous ultrasounds at this location, the fetus has known gastroschisis There is a single intrauterine fetus. The fetus is in a cephalic presentation. There is demonstrated cardiac activity with a heart rate of 133 bpm. There is a normal amniotic fluid volume. The largest amniotic fluid pocket measures 4.1 cm. The amniotic fluid index (VINAY) is 12.8 cm. The placenta is anterior in location and is not low lying. There are Grade 0 placental changes. The cervix measures 3.0 cm in length. BIOMETRY: No detailed anatomical survey of the fetus performed. Age by LMP: 24 weeks, 3 days. ARMEN by LMP: 11/06/2024. US/Transvaginal w/Preg US IMPRESSION: Single live intrauterine at 24 weeks, 3 days by LMP with ARMEN of 11/06/2024. Heart rate at 133 bpm. 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 No previous studies are available for comparison so interim growth cannot be assessed. There is normal VINAY Electronically Signed: Wu Patel MD at 12:58 EST ,
--- NOTE | 2024-07-20 09:44 | EKG12_ITS ---
Test Reason : CP Blood Pressure : */* mmHG Vent. Rate : 83 BPM Atrial Rate : 83 BPM P-R Int : 116 ms QRS Dur : 82 ms QT Int : 398 ms P-R-T Axes : 19 21 19 degrees QTcB Int : 467 ms Normal sinus rhythm with sinus arrhythmia Normal ECG Confirmed by GORDON MICHELLE, CHELSEA ([id number]), business editor KELLEN GARCES ([id number]) on 07/22/2024 7:03:34 AM Referred By: EDPHYS Confirmed By: CHELSEA LEYVA MD
[2024-07-20] MEDS: 0.9% Normal Saline (1000mL) 1,000 ML 999 ML IV (09:49)
[2024-07-20] MEDS: Acetaminophen 500 MG Tablet 1000 MG PO (09:50)
[2024-07-20] MEDS: Metoclopramide 10 MG/2 ML Vial 5 MG IV (09:50)
--- NOTE | 2024-07-20 10:00 | RAD_ITS ---
STUDY: X-RAY CHEST REASON FOR EXAM: Female, 28 years old. Chest pain TECHNIQUE: Frontal and lateral views of the chest. COMPARISON: May 30, 2024 FINDINGS: The lungs are clear and expanded. There is no demonstrated pleural abnormality. Normal size heart. Normal mediastinum and shubham. Normal visualized pulmonary arteries. Normal visualized aortic arch and descending thoracic aorta. There is a levoscoliosis of the thoracic spine. Normal visualized ribs, clavicles, and shoulders. There is no demonstrated abnormality of the visualized soft tissue structures of the upper abdomen. RAD/Chest PA and Lateral IMPRESSION: No acute cardiopulmonary disease. Electronically Signed: Bolivar Burrows MD at 11:31 [facility] ,
--- NOTE | 2024-07-20 10:24 | ED.VIS.CHEST ---
HPI History of Present Illness Chief Complaint: Chest Pain Narrative Narrative: Patient is a 28-year-old female G2, P1 who presents to the emergency department with a chief complaint of chest pain. Patient states that she has been sick for the past few days and not feeling well. She states that she was originally here a couple days ago was evaluated and ultimately was sent home. She states that over those couple days while at home she has had persistent nausea vomiting and not feeling well. She states that today she woke up and felt the baby was not moving and was very concerned about this therefore she came here she was evaluated by the OB team first. She states that she had chest pain and they advised her to come here for further evaluation management. Patient states that after several episodes of vomiting the other day is when she developed the chest pain and has been persistent since then. Patient states that the baby per the OB team was monitored and heart rate was adequate. Patient is concerned because she has had a significant mount of weight loss in the past few days. States that she is scheduled to have an ultrasound on Monday at [facility] as her baby has gastroschisis. [facility] Medical History 16 weeks gestation of Kidney infection Hemorrhagic shock complicated by shock Elective Hemorrhage following tonsillectomy and adenoidectomy Acute otitis media, left Home Medications ?Medication ?Instructions ?Recorded ?Last Taken ?Type multivitamin no.47-iron fum 27 1 cap PO DAILY 04/05/24 07/15/24 History mg-folate no.1 1 mg-dha 300 mg capsule (PNV-DHA) ondansetron 4 mg disintegrating 4 mg PO Q6H PRN nausea and 07/18/24 Unknown Rx tablet vomiting #10 tabs cephalexin 500 mg capsule 500 mg PO BID #14 caps 07/20/24 Unknown Rx Allergy/AdvReac Type Severity Reaction Status Date / Time No Known Allergies Allergy Verified 07/20/24 09:30 Surgical History H/O emergency section History of cholecystectomy H/O dilation and curettage [place] teeth extracted Social History adopted: Yes (after parents ) household members: spouse and children number of children: 1 current occupational status: unemployed current occupational exposures/hazards: No pets and animals: Yes pets and animals: dog(s) history of recent travel: No sexually active: Yes Smoking Status: Current every day smoker tobacco type: e-cigarettes quit status: considering quitting alcohol intake: never substance use type: marijuana well-balanced diet: daily or most days caffeine: No eating out: 1-3 times/week during the past year weight has: decreased > 10 lbs what type of physical activity do you participate in: walking frequency: daily duration: 45-60 minutes/day jessika/christianity: Baptism seatbelt use: sometimes do you feel safe at home: Yes additional social history: Dwayne ALMEIDA [facility] ED ROS Narrative Constitutional: Denies any fevers, chills, headaches, lightness, dizziness Eyes: Denies change in vision double vision blurry vision Cardiovascular: Complains of chest discomfort as noted above denies palpitations Respiratory:'s complains of coughing denies shortness of breath or wheezing Abdomen: Complains of nausea vomiting denies abdominal pain : Denies any vaginal bleeding, spotting, discharge, denies any urinary symptoms Neurological: Denies any numbness, weakness, tingling Musculoskeletal: Denies back pain Skin: Denies rashes or lesions EXAM Physical Exam Narrative Exam Narrative: General: Patient is lying in bed rest comfortably did not appear to be in acute distress Head: Atraumatic, normocephalic Eyes: PERRL bilateral, EOMI bilateral, no conjunctival injection noted Neck: Soft, supple, trachea midline Cardiovascular: Regular rate and rhythm no murmurs gallops rubs noted Respiratory: Clear to auscultation bilaterally Abdomen: Soft, gravid abdomen, no tenderness palpation Extremities: +5/5 strength noted in the bilateral upper and lower extremities Neurological: Patient following commands knew that she was at [facility] years 2023 Skin: Warm, dry, intact Const Vital Signs: 07/20/24 09:21 07/20/24 09:26 07/20/24 10:59 Temperature 98.4 F Temperature Source Oral Pulse Rate 87 74 Respiratory Rate 18 15 Respiratory Effort Short of Breath Blood Pressure 100/53 L 127/81 H Blood Pressure Mean 68 96 Pulse Ox 100 98 Oxygen Delivery Method Room Air Room Air 07/20/24 12:00 Temperature Temperature Source Pulse Rate 75 Respiratory Rate 21 H Respiratory Effort Blood Pressure 102/55 L Blood Pressure Mean 70 Pulse Ox 98 Oxygen Delivery Method Room Air MDM MDM MDM Narrative Medical decision making narrative: Patient is a 28-year-old female who presented to the emergency department chief complaint of chest pain, nausea vomiting and concern for weight loss over the past couple days. Patient will have a workup performed here on the differential diagnose includes but not limited to forehead syndrome, costochondritis, upper respiratory faction second viral etiology, decreased amniotic fluid. Once workup is obtained reviewed she will be reevaluated. Patient be given fluids, Reglan and Tylenol. Patient's urinalysis was reviewed and was positive for ketones with 50, negative nitrites negative leukocyte esterase however there was 2+ bacteria noted therefore this was sent for culture she will be placed on Keflex. She was advised to follow-up on this with her primary care physician or her TECHNICAL PRODUCER in outpatient setting. Chest x-ray reviewed by myself and by radiology showed no acute cardiopulmonary processes. Patient's ultrasound was reviewed and showed single live intrauterine 24 weeks 3 days with estimated due date of 11/06/2024. Heart rate was 133 bpm. 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 No previous studies are available for comparison so interim growth cannot be assessed. There is normal VINAY noted. Patient's EKG reviewed and independently interpreted by myself showed sinus rhythm with a rate of 83 bpm. On reevaluation the patient she is feeling significantly improved she would like to go home at this point time. She was given a hard copy of her ultrasound results and was encouraged to show her TECHNICAL PRODUCER these results in regards to if she needs her ultrasound performed on Monday or not. She was encouraged return with worsening symptoms or other concerns. Prescription for Keflex was sent to her pharmacy. All question concerns answered she was discharged home in stable condition. Lab Data Labs: Laboratory Results - last 24 hr 07/20/24 11:17 Urine Color Yellow Urine Clarity Clear Urine pH 7.0 Ur Specific [place] 1.010 Urine Protein Negative Urine Glucose (UA) Normal Urine Ketones 50 H Urine Occult Blood Negative Urine Nitrite Negative Urine Bilirubin Negative Urine Urobilinogen 1 H Ur Leukocyte Esterase Negative Urine RBC 0 SEEN Urine WBC 0-5 SEEN Ur Squamous Epith Cells 0-5 SEEN Amorphous Sediment 2+ Urine Bacteria 2+ Urine Mucus 0 SEEN Radiography Diagnostic Testing: Clinical Impression(s) from Imaging Studies Obstetrics Ultrasound 07/20/24 09:44 IMPRESSION: Single live intrauterine at 24 weeks, 3 days by LMP with ARMEN of 11/06/2024. Heart rate at 133 bpm. 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 No previous studies are available for comparison so interim growth cannot be assessed. There is normal VINAY Electronically Signed: Wu Patel MD at 12:58 EST , Chest X-Ray 07/20/24 10:00 IMPRESSION: No acute cardiopulmonary disease. Electronically Signed: Bolivar Burrows MD at 11:31 EST , Discharge Plan Triage Chief Complaint: Chest Pain ED Provider: Jeremie Palmer Dx/Rx/DC Orders Clinical Impression: Chest pain Prescriptions: New cephalexin 500 mg capsule 500 mg PO BID Qty: 14 0RF No Action PNV-DHA 27 mg iron-1 mg -300 mg capsule 1 cap PO DAILY ondansetron 4 mg tablet,disintegrating 4 mg PO Q6H PRN (Reason: nausea and vomiting) Qty: 10 0RF Primary Care Provider: Care Physician,No Primary Referrals: Care Physician,No Primary [Primary Care Provider] - Jeana Pleitez Bhavik, DO [[facility]] - Activity Restrictions/Additional Instructions: Follow-up with your TECHNICAL PRODUCER in the outpatient setting. Take antibiotics as prescribed and follow-up on the urine culture result with your TECHNICAL PRODUCER to ensure if you need a different antibiotic or if you need antibiotics at all. Take the antibiotic until this is resulted. Return with worsening symptoms or any other concerns. Print Language: Thai Disposition Disposition: Home, Self Care
[2024-07-20 10:59] VITALS: BP 127/81; PULSE 74; RESP 15; O2SAT 98
[2024-07-20 11:23] LABS: Mucous, Urine 0 SEEN /hpf (<or=2+); Red Blood Cells-Urine 0 SEEN /hpf (0-5)
[2024-07-20 11:26] LABS: Color, Urine Yellow (Yellow); Glucose, Dipstick Normal (Normal); Ketone-Dipstick 50 mg/dl (Negative); Leukocyte Esterase-Dipstick Negative /ul (Negative); Nitrite-Dipstick Negative (Negative); Occult Blood-Urine Negative /ul (Negative); Protein-Dipstick Negative (Negative); Urine Bilirubin Dipstick Negative (Negative); Urine Clarity Clear (Clear); Urine Urobilinogen 1 mg/dl (Normal)
[2024-07-20 11:36] LABS: Amorphous Sediment 2+; Bacteria 2+ /hpf (None Seen); Squamous Epithelial Cells - UA 0-5 SEEN /hpf (5-10); White Blood Cells 0-5 SEEN /hpf (0-5)
[2024-07-20 12:00] VITALS: BP 102/55; PULSE 75; RESP 21; O2SAT 98
[2024-07-20 13:00] VITALS: BP 99/56; PULSE 91; RESP 18; O2SAT 98
== END 2024-07-20 13:18 | disposition home or self-care (01) ==
PROVIDERS: Emergency Provider Emergency Medicine; Visit Provider Emergency Medicine
DX: O99.891 Other specified diseases and conditions complicating pregnancy (principal); O21.9 Vomiting of pregnancy, unspecified; Z3A.24 24 weeks gestation of pregnancy; R07.9 Chest pain, unspecified; Z90.49 Acquired absence of other specified parts of digestive tract; O99.332 Smoking (tobacco) complicating pregnancy, second trimester; F17.290 Nicotine dependence, other tobacco product, uncomplicated; R39.89 Other symptoms and signs involving the genitourinary system
CPT/HCPCS: 71046; 76817; 81001; 87086; 87088; 93005; 96361; 96374; 99283; A4216

== ENCOUNTER → 2024-08-07 | Outpatient (CLI) | payer MEDICAID, SELFPAY ==
[2024-08-07 12:44] LABS: Glucose Challenge Gest 1H 50g 149 mg/dL (70-140)
[2024-08-07 13:06] LABS: HIV - WCH Non-Reactive (Nonreactive); Syphilis Antibodies Non-reactive
[2024-08-07 13:12] LABS: Absolute Lymphocyte Count 1.74 X10^3/uL (0.83-4.51); Absolute Neutrophil Count 5.5 X10^3/uL (2.0-7.7); Basophil# 0.06 X10^3/uL; Basophil% 0.8 % (0-1); Eosinophil# 0.16 X10^3/uL; Hematocrit 33.5 % (37-47); Hemoglobin 10.7 g/dL (12.0-15.0); Lymphocyte # 1.74 X10^3/ul (0.83-4.51); Lymphocyte % 21.8 % (19-41); Mean Corp Hgb Conc 31.9 g/dL (32-36); Mean Corpuscular Hgb 28.4 pg (27.0-32.0); Mean Corpuscular Volume 88.9 fL (81-99); Mean Platelet Vol. 9.3 fl (6.2-12.0); Monocyte# 0.41 X10^3/uL; Monocyte% 5.1 % (0-10); NRBC Flagged by Analyzer 0 % (0-5); Neutrophil # 5.48 X10^3/uL (2.7-7.7); Neutrophil % 68.7 % (47-70); Platelet Count 428 K/mm3 (150-450); RBC Distribution Width CV 12.8 % (11.6-14.6); RBC Distribution Width SD 41.7 fl (35.1-43.9); Red Blood Count 3.77 M/mm3 (4.2-5.4)
== END | disposition home or self-care (01) ==
LOC: BWCLAB 10:07
PROVIDERS: Obstetrics & Gynecology; Referring Provider Advanced Practice Midwife; Visit Provider Advanced Practice Midwife
DX: O09.90 Supervision of high risk pregnancy, unspecified, unspecified trimester (principal); Z3A.00 Weeks of gestation of pregnancy not specified; Z13.1 Encounter for screening for diabetes mellitus
CPT/HCPCS: 36415; 82950; 85025; 86703; 86780

== ENCOUNTER → 2024-08-14 | Outpatient (CLI) | payer MEDICAID, SELFPAY ==
[2024-08-14 07:34] LABS: Bedside Glucose 74 mg/dL (74-106)
[2024-08-14 07:39] LABS: Glucose GTT-Gestation. Fasting 81 mg/dL (<105)
== END | disposition home or self-care (01) ==
LOC: LAB 07:01
PROVIDERS: Referring Provider Nurse Practitioner Women's Health; Visit Provider Nurse Practitioner Women's Health
DX: Z13.1 Encounter for screening for diabetes mellitus (principal)
CPT/HCPCS: 36415; 82951; 82952; 82962

== ENCOUNTER → 2024-08-26 | Outpatient (CLI) | payer MEDICAID, SELFPAY | END | disposition home or self-care (01) | LOC: LABSPEC 11:33 | PROVIDERS: Referring Provider Obstetrics & Gynecology; Visit Provider Obstetrics & Gynecology | DX: R30.0 Dysuria (principal) | CPT/HCPCS: 87086; 87088 ==

== ENCOUNTER 2024-08-27 09:05 | Outpatient (CLI) | payer MEDICAID, SELFPAY ==
[2024-08-27 09:12] VITALS: BMI 29.9
[2024-08-27 09:15] VITALS: RESP 15; TEMP 36.6
--- NOTE | 2024-08-27 14:09 | OB.TRI.HP_ITS ---
HPI - General General Chief Complaint: 6/8 BPP HPI Narrative KAT SUAREZ, is a 28 F who presents at 29.6 for 6/8 BPP off for breathing. + movement. denies lof/vb. Maternal Data Information ARMEN Calculator Estimated Delivery Date Method Current WG Current Estimate 11/06/24 Ultrasound #1 29w 6d Other Estimates 11/14/24 LMP (Certain) 28w 5d PFSH PFSH Medical History (Updated 08/27/24 @ 14:11 by Caitlyn Snider CNM) 16 weeks gestation of Kidney infection Hemorrhagic shock complicated by shock Elective Hemorrhage following tonsillectomy and adenoidectomy Acute otitis media, left Home Medications ?Medication ?Instructions ?Recorded ?Last Taken ?Type multivitamin no.47-iron fum 27 1 cap PO DAILY 04/05/24 07/15/24 History mg-folate no.1 1 mg-dha 300 mg capsule (PNV-DHA) ondansetron 4 mg disintegrating 4 mg PO Q6H PRN nausea and 07/18/24 Unknown Rx tablet vomiting #10 tabs sertraline 50 mg tablet (Zoloft) 50 mg PO DAILY #30 tabs 08/07/24 Unknown Rx blood sugar diagnostic (Blood #120 ea 08/14/24 Unknown Rx Glucose Test strips) blood-glucose meter #1 ea 08/14/24 Unknown Rx lancets #200 ea 08/14/24 Unknown Rx Allergy/AdvReac Type Severity Reaction Status Date / Time No Known Allergies Allergy Verified 08/27/24 09:14 Surgical History H/O emergency section History of cholecystectomy H/O dilation and curettage [place] teeth extracted Social History adopted: Yes (after parents ) household members: spouse and children number of children: 1 current occupational status: unemployed current occupational exposures/hazards: No pets and animals: Yes pets and animals: dog(s) history of recent travel: No sexually active: Yes Smoking Status: Current every day smoker tobacco type: e-cigarettes quit status: considering quitting alcohol intake: never substance use type: marijuana well-balanced diet: daily or most days caffeine: No eating out: 1-3 times/week during the past year weight has: decreased > 10 lbs what type of physical activity do you participate in: walking frequency: daily duration: 45-60 minutes/day jessika/synagogue: Baptism seatbelt use: sometimes do you feel safe at home: Yes additional social history: Dwayne History 3 Elective abortions 1 Hx Para 1 Spontaneous abortions Hx # Term Pregnancies Ectopic pregnancies Hx # Pregnancies Multiple births # of living children 1 Past Pregnancies Del. Date Name GA/Weeks Outcome Route Bth Weight Infant Gen Labor Lgth Anesthesia Del Locatn Provider FOB 12/19/19 uNvia 40 live - full term 6#4oz Female epidural [facility] [place] Dwayne Delivery Date: 12/19/19 Last Updated by: Angelika Jeronimo emergency c section, decels,cord around neck, meconium Visit Details Expected Delivery Route/Plan patient counseled regarding risks/benefits of trial of labor versus repeat . ACOG/uptodate education given to patient. [] % likelihood of success per calculator TOLAC consent form signed: [] Labor Preferences- CB/BF classes: [] labor support person: [] labor intervention preferences: [] pain management options preferred: [] cut cord/dad catch: [] : [] PP control planned: [] discussed possible routes of delivery and associated risks: [] special requests: [] Plans Covid status: [] Flu vaccine: [] Tdap vaccine: [] Rhogam: [] LARC form signed: [] Problem list reviewed and updated with the most current plan of care details and appropriate orders placed. Relevant counseling for the gestational age provided. Continue routine care and follow up unless otherwise noted in visit notes/problem list details OB Flowsheet Initial Weight: Not Recorded Date -?-?-?-?-?-?-?-?-?-?-?-?- EGA Weight BP Urine Prot -?-?-?-?-?-?-?-?-?-?-?-?- Glucose FHR FuHt Pres Dilation -?-?-?-?-?-?-?-?-?-?-?-?- Effaced St Visit Note 04/15/24 -?-?-?-?-?-?-?-?-?-?-?-?- 10w 5d 134 lb 8 oz 133/74 -?-?-?-?-?-?-?-?-?-?-?-?- 165 -?-?-?-?-?-?-?-?-?-?-?-?- JV- CRL is 3.85. measuring over a week off from LMP per [email or web address] CRL measurement. new armen given. declines NIPT. Wants to consider . 05/13/24 -?-?-?-?-?-?-?-?-?-?-?-?- 14w 5d 140 lb 115/75 Negative -?-?-?-?-?-?-?-?-?-?-?-?- Negative 155 -?-?-?-?-?-?-?-?-?-?-?-?- KW- no vb/crampi ng. MFM US ordered. NIPT today. wants repeat c/s 06/14/24 -?-?-?-?-?-?-?-?-?-?-?-?- 19w 2d 141 lb 122/84 Negative -?-?-?-?-?-?-?-?-?-?-?-?- Negative 145 -?-?-?-?-?-?-?-?-?-?-?-?- KW- no vb/crampi ng. possible fm noted. US on 06/18. 06/19/24 -?-?-?-?-?-?-?-?-?-?-?-?- 20w 0d 140 lb 4 oz 111/71 -?-?-?-?-?-?-?-?-?-?-?-?- -?-?-?-?-?-?-?-?-?-?-?-?- SM- new diagnosi s of gastroscheis- had extensive discussion and provided counseling and education 07/11/24 -?-?-?-?-?-?-?-?-?-?-?-?- 23w 1d 143 lb 6 oz 114/73 Nega tive -?-?-?-?-?-?-?-?-?-?-?-?- Negative 145 -?-?-?-?-?-?-?-?-?-?-?-?- SM- no vb lof go od fm no reuglar ctx will start zoloft, coping [place] 08/07/24 -?-?-?-?-?-?-?-?-?-?-?-?- 27w 0d 145 lb 118/68 Negative -?-?-?-?-?-?-?-?-?-?-?-?- Negative 140 26 -?-?-?-?-?-?-?-?-?-?-?-?- MH-No VB, LOF. G ood FM. Needs Rx to start zoloft/sent. Continues follow up with MFM and will CARMELO at 32 wk 08/26/24 -?-?-?-?-?-?-?-?-?-?-?-?- 29w 5d 147 lb 95/63 Negative -?-?-?-?-?-?-?-?-?-?-?-?- Negative 140 29 -?-?-?-?-?-?-?-?-?-?-?-?- SM- no vb lof go od fm no regular ctx SM- no vb lof good fm no reg ular ctx co lower pelvic pain SM- no vb lof good fm no reg ular ctx co lower pelvic pain will rule out UTI. reocmmend CARMELO now due to IUGR diagnosis now also. SM- no vb lof good fm no reg ular ctx co lower pelvic pain will rule out UTI. reocmmend CARMELO now due to IUGR diagnosis now also. reviewed BS and looks like GDM recommend nutrition consult. NST FHR Rate Baby A Baseline: 130 Variability:: Moderate Accelerations:: 10 x 10 Decelerations:: None NST Reactive:: Yes FHR Category:: Category I Uterine Activity:: none Assessment & Plan (1) NST (non-stress test) reactive: COMMENT: 01/05 BPP sent for monitoring to reactive NST. 03/09 monitoring PLAN: Plan Patient presents for triage evaluation secondary to 01/05 BPP sent for prolonged monitoring FHT: Moderate variability reactive no decelerations category I tracing [place]: no Contractions Assessment and plan: Reactive NST, reassuring maternal and status patient discharged to home to follow-up in office. See problem list details for additional plan information. Charges/Coding Procedures Urinary/Genital 52xxx-59xxx: 12438-17 non-stress test Interp
== END 2024-08-27 11:30 | disposition home or self-care (01) ==
LOC: WPOUT 09:10 → WP 09:10
PROVIDERS: Referring Provider Registered Nurse; Visit Provider Registered Nurse
DX: O36.8390 Maternal care for abnormalities of the fetal heart rate or rhythm, unspecified trimester, not applicable or unspecified (principal); Z90.49 Acquired absence of other specified parts of digestive tract; Z3A.00 Weeks of gestation of pregnancy not specified
CPT/HCPCS: 59025; 59050; 99221; G0378

== ENCOUNTER 2024-08-28 12:50 | Outpatient (RCR) | payer MEDICAID, SELFPAY | END 2024-08-30 23:59 | LOC: NS 12:50 | PROVIDERS: Referring Provider Obstetrics & Gynecology; Visit Provider Obstetrics & Gynecology | DX: Z71.3 Dietary counseling and surveillance (principal); O24.419 Gestational diabetes mellitus in pregnancy, unspecified control | CPT/HCPCS: 97802 ==

== ENCOUNTER 2024-08-30 00:42 | Outpatient (CLI) | payer MEDICAID, SELFPAY ==
[2024-08-30] VITALS (8 sets, daily range): BP systolic 118; BP diastolic 58; PULSE 75–85; RESP 14; TEMP 36.7; O2SAT 97–99; BMI 29.7
[2024-08-30 01:30] LABS: Color, Urine Straw (Yellow); Glucose, Dipstick Normal (Normal); Ketone-Dipstick Negative (Negative); Leukocyte Esterase-Dipstick Negative /ul (Negative); Nitrite-Dipstick Negative (Negative); Occult Blood-Urine Negative /ul (Negative); Protein-Dipstick Negative (Negative); Specific Gravity, Urine 1.015 (1.002-1.030); Urine Bilirubin Dipstick Negative (Negative); Urine Clarity Clear (Clear); Urine Urobilinogen Normal (Normal); Urine pH 6.5 (5.0 - 8.0)
[2024-08-30 01:47] LABS: ROM Internal Control Test YES-OK TO RESULT pt. (Internal QC)
[2024-08-30 01:48] LABS: ROM Patient Test Negative (Negative); Record Kit Lot#, ROM+ K2451
[2024-08-30] MEDS: Lactated Ringers 1,000 ML 999 ML IV (02:30)
[2024-08-30 02:51] LABS: Absolute Lymphocyte Count 2.68 X10^3/uL (0.83-4.51); Absolute Neutrophil Count 7.5 X10^3/uL (2.0-7.7); Basophil# 0.09 X10^3/uL; Basophil% 0.8 % (0-1); Eosinophil# 0.28 X10^3/uL; Eosinophils% 2.5 % (0-5); Hematocrit 33.1 % (37-47); Hemoglobin 10.6 g/dL (12.0-15.0); Lymphocyte # 2.68 X10^3/ul (0.83-4.51); Lymphocyte % 23.5 % (19-41); Mean Corpuscular Hgb 27.7 pg (27.0-32.0); Mean Corpuscular Volume 86.4 fL (81-99); Mean Platelet Vol. 9.5 fl (6.2-12.0); Monocyte# 0.76 X10^3/uL; Monocyte% 6.7 % (0-10); NRBC Flagged by Analyzer 0 % (0-5); Neutrophil # 7.48 X10^3/uL (2.7-7.7); Neutrophil % 65.4 % (47-70); Platelet Count 369 K/mm3 (150-450); RBC Distribution Width CV 13.1 % (11.6-14.6); RBC Distribution Width SD 40.5 fl (35.1-43.9); Red Blood Count 3.83 M/mm3 (4.2-5.4); White Blood Count 11.4 K/mm3 (4.4-11.0)
[2024-08-30 03:20] LABS: Fibrinogen 502 mg/dl (203-444)
--- NOTE | 2024-09-09 14:12 | OB.TRI.PN ---
Progress Notes Date of Service: 08/30/24 Progress Note: Patient presents for triage evaluation secondary to abdominal pain and pressure FHT: 130 Moderate variability reactive no decelerations category I tracing [place]: no regular Contractions Assessment and plan: 30 weeks false labor no cervical change no dilation Reactive NST, reassuring maternal and status patient discharged to home to follow-up as scheduled. See problem list details for additional plan information. Laboratory Studies: Laboratory Tests 08/30/24 08/30/24 Range/Units 02:30 01:11 WBC 11.4 H (4.4-11.0) K/mm3 RBC 3.83 L (4.2-5.4) M/mm3 Hgb 10.6 L (12.0-15.0) g/dL Hct 33.1 L (37-47) % MCV 86.4 (81-99) fL MCH 27.7 (27.0-32.0) pg MCHC 32.0 (32-36) g/dL RDW Std Deviation 40.5 (35.1-43.9) fl RDW Coeff of Wilfredo 13.1 (11.6-14.6) % Plt Count 369 (150-450) K/mm3 MPV 9.5 (6.2-12.0) fl Immature Gran % (Auto) 1.100 H (0.0-0.9) % Neut % (Auto) 65.4 (47-70) % Lymph % (Auto) 23.5 (19-41) % [place] % (Auto) 6.7 (0-10) % Eos % (Auto) 2.5 (0-5) % Baso % (Auto) 0.8 (0-1) % Absolute Neuts (auto) 7.5 (2.0-7.7) X10^3/uL Absolute Lymphs (auto) 2.68 (0.83-4.51) X10^3/uL Nucleated RBC % 0 (0-5) % Fibrinogen 502 H (203-444) mg/dl Urine Color Straw (Yellow) Urine Clarity Clear (Clear) Urine pH 6.5 (5.0 - 8.0) Ur Specific [place] 1.015 (1.002-1.030) Urine Protein Negative (Negative) mg/dl Urine Glucose (UA) Normal (Normal) mg/dl Urine Ketones Negative (Negative) mg/dl Urine Occult Blood Negative (Negative) /ul Urine Nitrite Negative (Negative) Urine Bilirubin Negative (Negative) mg/dL Urine Urobilinogen Normal (Normal) mg/dl Ur Leukocyte Esterase Negative (Negative) /ul Vag Amniotic Fld Detect Negative (Negative) Fibronectin Cancelled Charges/Coding Procedures Urinary/Genital 52xxx-59xxx: 86276-58 non-stress test Interp Assessment & Plan (1) Gestational diabetes mellitus (GDM): COMMENT: reviewed blood sugars and made diagnosis based on those. recommend nutrition consult and follow up with MFM (2) Supervision of high-risk : QUALIFIERS: Trimester: third trimester Qualified Code(s): O09.93 - Supervision of high risk , unspecified, third trimester COMMENT: [id number], ARMEN 11/14/24, AMBAR Pedersen, Dwayne (3) : QUALIFIERS: Weeks of gestation: 29 weeks Qualified Code(s): Z3A.29 - 29 weeks gestation of COMMENT: NIPT low risk, declines carrier (4) Hx of section: COMMENT: plan RLTCS
== END 2024-08-30 04:14 | disposition home or self-care (01) ==
LOC: WPOUT 00:45 → WP 00:45
PROVIDERS: Referring Provider Obstetrics & Gynecology; Visit Provider Obstetrics & Gynecology
DX: O47.03 False labor before 37 completed weeks of gestation, third trimester (principal); Z3A.30 30 weeks gestation of pregnancy; O24.419 Gestational diabetes mellitus in pregnancy, unspecified control
CPT/HCPCS: 96360; 36415; 59025; 59050; 81002; 84112; 85025; 85384; 99221; G0378

== ENCOUNTER 2024-09-05 10:25 | Outpatient (CLI) | payer MEDICAID, SELFPAY ==
[2024-09-05 10:47] VITALS: BP 115/70; PULSE 85; RESP 18; TEMP 36.5
[2024-09-05 10:50] VITALS: BMI 29.8
--- NOTE | 2024-09-05 12:15 | OB.TRI.HP_ITS ---
HPI - General HPI Narrative KAT SUAREZ, is a 28 F who presents to L&D for an NSt due to bpp of 01/05. She is 31 weeks gestation. Maternal Data Information ARMEN Calculator Estimated Delivery Date Method Current WG Current Estimate 11/06/24 Ultrasound #1 31w 1d Other Estimates 11/14/24 LMP (Certain) 30w 0d PFSH PFSH Medical History (Updated 09/05/24 @ 12:[address] Amanda Hill, DO) 16 weeks gestation of Kidney infection Hemorrhagic shock complicated by shock Elective Hemorrhage following tonsillectomy and adenoidectomy Acute otitis media, left Home Medications ?Medication ?Instructions ?Recorded ?Last Taken ?Type multivitamin no.47-iron fum 27 1 cap PO DAILY 04/05/24 09/04/24 22:00 History mg-folate no.1 1 mg-dha 300 mg 1 cap capsule (PNV-DHA) ondansetron 4 mg disintegrating 4 mg PO Q6H PRN nausea and 07/18/24 Unknown Rx tablet vomiting #10 tabs sertraline 50 mg tablet (Zoloft) 50 mg PO DAILY #30 ta bs 08/07/24 09/04/24 10:00 Rx 50 mg blood sugar diagnostic (Blood #120 ea 08/14/24 Unknown Rx Glucose Test strips) blood-glucose meter #1 ea 08/14/24 Unknown Rx lancets #200 ea 08/14/24 Unknown Rx Allergy/AdvReac Type Severity Reaction Status Date / Time No Known Allergies Allergy Verified 09/05/24 10:49 Surgical History H/O emergency section History of cholecystectomy H/O dilation and curettage [place] teeth extracted Social History adopted: Yes (after parents ) household members: spouse and children number of children: 1 current occupational status: unemployed current occupational exposures/hazards: No pets and animals: Yes pets and animals: dog(s) history of recent travel: No sexually active: Yes Smoking Status: Current every day smoker tobacco type: e-cigarettes quit status: considering quitting alcohol intake: never substance use type: marijuana well-balanced diet: daily or most days caffeine: No eating out: 1-3 times/week during the past year weight has: decreased > 10 lbs what type of physical activity do you participate in: walking frequency: daily duration: 45-60 minutes/day jessika/buddhist: Jehovah'[employer] seatbelt use: sometimes do you feel safe at home: Yes additional social history: Dwayne History 3 Elective abortions 1 Hx Para 1 Spontaneous abortions Hx # Term Pregnancies Ectopic pregnancies Hx # Pregnancies Multiple births # of living children 1 Past Pregnancies Del. Date Name GA/Weeks Outcome Route Bth Weight Gen Labor Lgth Anesthesia Del Locatn Provider FOB 12/19/19 Nuvia 40 live - full term 6#4oz Female epidural [facility] [place] Dwayne Delivery Date: 12/19/19 Last Updated by: Angelika Jeronimo emergency c section, decels,cord around neck, meconium Visit Details Expected Delivery Route/Plan patient counseled regarding risks/benefits of trial of labor versus repeat . ACOG/uptodate education given to patient. [] % likelihood of success per calculator TOLAC consent form signed: [] Labor Preferences- CB/BF classes: [] labor support person: [] labor intervention preferences: [] pain management options preferred: [] cut cord/dad catch: [] : [] PP control planned: [] discussed possible routes of delivery and associated risks: [] special requests: [] Plans Covid status: [] Flu vaccine: [] Tdap vaccine: [] Rhogam: [] LARC form signed: [] Problem list reviewed and updated with the most current plan of care details and appropriate orders placed. Relevant counseling for the gestational age provided. Continue routine care and follow up unless otherwise noted in visit notes/problem list details OB Flowsheet Initial Weight: Not Recorded Date -?-?-?-?-?-?-?-?-?-?-?-?- EGA Weight BP Urine Prot -?-?-?-?-?-?-?-?-?-?-?-?- Glucose FHR FuHt Pres Dilation -?-?-?-?-?-?-?-?-?-?-?-?- Effaced St Visit Note 04/15/24 -?-?-?-?-?-?-?-?-?-?-?-?- 10w 5d 134 lb 8 oz 133/74 -?-?-?-?-?-?-?-?-?-?-?-?- 165 -?-?-?-?-?-?-?-?-?-?-?-?- JV- CRL is 3.85. measuring over a week off from LMP per [email or web address] CRL measurement. new armen given. declines NIPT. Wants to consider . 05/13/24 -?-?-?-?-?-?-?-?-?-?-?-?- 14w 5d 140 lb 115/75 Negative -?-?-?-?-?-?-?-?-?-?-?-?- Negative 155 -?-?-?-?-?-?-?-?-?-?-?-?- KW- no vb/crampi ng. MFM US ordered. NIPT today. wants repeat c/s 06/14/24 -?-?-?-?-?-?-?-?-?-?-?-?- 19w 2d 141 lb 122/84 Negative -?-?-?-?-?-?-?-?-?-?-?-?- Negative 145 -?-?-?-?-?-?-?-?--?-?-?-?- KW- no vb/crampi ng. possible fm noted. US on 06/18. 06/19/24 -?-?-?-?-?-?-?-?-?-?-?-?- 20w 0d 140 lb 4 oz 111/71 -?-?-?-?-?-?-?-?-?-?-?-?- -?-?-?-?-?-?-?-?-?-?-?-?- SM- new diagnosi s of gastroscheis- had extensive discussion and provided counseling and education 07/11/24 -?-?-?-?-?-?-?--?-?-?-?-?- 23w 1d 143 lb 6 oz 114/73 Nega tive -?-?-?-?-?-?-?-?-?-?-?-?- Negative 145 -?-?-?-?-?-?-?-?-?-?-?-?- SM- no vb lof go od fm no reuglar ctx will start zoloft, coping appropriatley 08/07/24 -?-?-?-?-?-?-?-?-?-?-?-?- 27w 0d 145 lb 118/68 Negative -?-?-?-?-?-?-?-?-?-?-?-?- Negative 140 26 -?-?-?-?-?-?-?-?-?-?-?-?- MH-No VB, LOF. G ood FM. Needs Rx to start zoloft/sent. Continues follow up with MFM and will CARMELO at 32 wk 08/26/24 -?-?-?-?--?-?-?-?-?-?-?-?- 29w 5d 147 lb 95/63 Negative -?-?-?-?-?-?-?-?-?-?-?-?- Negative 140 29 -?-?-?-?-?-?-?-?-?-?-?-?- SM- no vb lof go od fm no regular ctx SM- no vb lof good fm no reg ular ctx co lower pelvic pain SM- no vb lof good fm no reg ular ctx co lower pelvic pain will rule out UTI. reocmmend CARMELO now due to IUGR diagnosis now also. SM- no vb lof good fm no reg ular ctx co lower pelvic pain will rule out UTI. reocmmend CARMELO now due to IUGR diagnosis now also. reviewed BS and looks like GDM recommend nutrition consult. ROS Constitutional Constitutional: Reports systems reviewed and no addt'l complaints, except as documented Gastrointestinal Gastrointestinal: Denies bloating, constipation, cramping, diarrhea, nausea or vomiting Genitourinary Genitourinary: Reports other Details: Denies vaginal odor, vaginal bleeding, or vaginal discharge ; Denies difficulty urinating or flank pain NST FHR Rate Baby A Baseline: 140 Variability:: Moderate Accelerations:: 15 x 15 and 10 x 10 Decelerations:: None NST Reactive:: Yes FHR Category:: Category I Assessment & Plan (1) Abnormal test: COMMENT: bpp 03/09 after nst. (2) NST (non-stress test) reactive: COMMENT: 01/05 BPP sent for monitoring to reactive NST. 03/09 monitoring (3) IUGR (intrauterine growth restriction) affecting care of mother: COMMENT: AC 9 percentile, recommend CARMELO now. (4) Dysuria: (5) Gestational diabetes mellitus (GDM): COMMENT: reviewed blood sugars and made diagnosis based on those. recommend nutrition consult and follow up with M (6) Anemia affecting : (7) Abnormal glucose affecting : COMMENT: unable to complete 3 hr GTT- test BS fasting & 2 hr PP (8) Threatened labor: (9) Gastroschisis of fetus in [place] , antepartum: COMMENT: following with treatment center, planning [place] in [place]. CARMELO at 30 weeks due to new IUGR diagnosis also. (10) Anxiety and depression: COMMENT: restart zoloft at 50 mg 08/07/24 (11) Cigarette smoker: COMMENT: 5 cigarettes/day (12) Marijuana use during : COMMENT: one time a week ago for nausea, random tox screens discussed (13) Hx of section: COMMENT: plan RLTCS (14) Supervision of high-risk : QUALIFIERS: Trimester: third trimester Qualified Code(s): O09.93 - Supervision of high risk , unspecified, third trimester COMMENT: [id number], ARMEN 11/14/24, AMBAR Pedersen, Dwayne (15) : QUALIFIERS: Weeks of gestation: 29 weeks Qualified Code(s): Z3A.29 - 29 weeks gestation of COMMENT: NIPT low risk, declines carrier PLAN: Plan nst reactive. ok to dc to home Charges/Coding Multi Select Codes Urinary/Genital Urinary/Genital CPT Codes: 64989-98 non-stress test Interp
== END 2024-09-05 11:30 | disposition home or self-care (01) ==
LOC: WPOUT 10:40 → WP 10:41
PROVIDERS: Referring Provider Obstetrics & Gynecology; Visit Provider Obstetrics & Gynecology
DX: O28.8 Other abnormal findings on antenatal screening of mother (principal); Z3A.31 31 weeks gestation of pregnancy
CPT/HCPCS: 59025; 59050; 99221; G0378

== ENCOUNTER 2024-09-11 13:00 | Outpatient (RCR) | payer MEDICAID, SELFPAY | END 2024-09-27 23:59 | LOC: NS 13:00 | PROVIDERS: Referring Provider Obstetrics & Gynecology; Visit Provider Obstetrics & Gynecology | DX: O24.419 Gestational diabetes mellitus in pregnancy, unspecified control | CPT/HCPCS: 97803 ==

== ENCOUNTER 2024-09-30 17:00 | Outpatient (CLI) | payer MEDICAID, SELFPAY ==
[2024-09-30] VITALS (24 sets, daily range): BP systolic 121; BP diastolic 65; PULSE 78–107; RESP 14; TEMP 36.6; O2SAT 98–100; BMI 30.2
--- NOTE | 2024-09-30 20:15 | OB.TRI.PN ---
Progress Notes Date of Service: 09/30/24 Progress Note: Patient presents for triage evaluation secondary to NST after BPP with MFM at 34.5 weeks. Patient reports BPP was 03/07. FHT: 125 Moderate variability reactive no decelerations category I tracing [place]: no Contractions Assessment and plan: Reactive NST, reassuring maternal and status patient discharged to home to follow-up at next scheduled appt. See problem list details for additional plan information. Charges/Coding Multi Select Codes Urinary/Genital Urinary/Genital CPT Codes: 13444-97 non-stress test Interp Assessment & Plan (1) Dysuria: (2) IUGR (intrauterine growth restriction) affecting care of mother: COMMENT: AC 9 percentile, recommend CARMELO now. (3) Gestational diabetes mellitus (GDM): COMMENT: reviewed blood sugars and made diagnosis based on those. recommend nutrition consult and follow up with MFM (4) Anemia affecting : (5) Abnormal glucose affecting : COMMENT: unable to complete 3 hr GTT- test BS fasting & 2 hr PP (6) Threatened labor: (7) Gastroschisis of fetus in [place] , antepartum: COMMENT: following with treatment center, planning delivery in [place]. CARMELO at 30 weeks due to new IUGR diagnosis also. (8) Anxiety and depression: COMMENT: restart zoloft at 50 mg 08/07/24 (9) Cigarette smoker: COMMENT: 5 cigarettes/day (10) Marijuana use during : COMMENT: one time a week ago for nausea, random tox screens discussed (11) Hx of section: COMMENT: plan RLTCS (12) Supervision of high-risk : QUALIFIERS: Trimester: third trimester Qualified Code(s): O09.93 - Supervision of high risk , unspecified, third trimester COMMENT: [id number], ARMEN 11/14/24, AMBAR Pedersen, Dwayne (13) : QUALIFIERS: Weeks of gestation: 31 weeks Qualified Code(s): Z3A.31 - 31 weeks gestation of COMMENT: NIPT low risk, declines carrier
== END 2024-09-30 19:40 | disposition home or self-care (01) ==
LOC: WPOUT 17:03 → WP 17:03
PROVIDERS: Referring Provider Obstetrics & Gynecology; Visit Provider Obstetrics & Gynecology
DX: O09.93 Supervision of high risk pregnancy, unspecified, third trimester (principal); O99.891 Other specified diseases and conditions complicating pregnancy; R30.0 Dysuria; Z3A.34 34 weeks gestation of pregnancy; O36.5930 Maternal care for other known or suspected poor fetal growth, third trimester, not applicable or unspecified; O24.419 Gestational diabetes mellitus in pregnancy, unspecified control; O99.013 Anemia complicating pregnancy, third trimester; Q79.3 Gastroschisis; O99.343 Other mental disorders complicating pregnancy, third trimester; F41.8 Other specified anxiety disorders; Z79.899 Other long term (current) drug therapy; O99.333 Smoking (tobacco) complicating pregnancy, third trimester; F17.210 Nicotine dependence, cigarettes, uncomplicated; O99.323 Drug use complicating pregnancy, third trimester; F12.99 Cannabis use, unspecified with unspecified cannabis-induced disorder
CPT/HCPCS: 59025; 59050; 99221; G0378

== ENCOUNTER 2024-10-03 15:15 | Outpatient (CLI) | payer MEDICAID, SELFPAY ==
[2024-10-03 15:37] VITALS: BP 124/73; PULSE 85; PULSE 89; RESP 16; TEMP 36.8; O2SAT 98; O2SAT 99
[2024-10-03 15:41] VITALS: BMI 30.2
--- NOTE | 2024-10-03 23:02 | OB.TRI.HP_ITS ---
HPI - General HPI Narrative KAT SUAREZ, is a 28 y/o @ 35 weeks 1 day who presents to L&D for an NST due to a BPP finding of 01/05. Maternal Data Information ARMEN Calculator Estimated Delivery Date Method Current WG Current Estimate 11/06/24 Ultrasound #1 36w 1d Other Estimates 11/14/24 LMP (Certain) 35w 0d PFSH PFSH Medical History 16 weeks gestation of Kidney infection Hemorrhagic shock complicated by shock Elective Hemorrhage following tonsillectomy and adenoidectomy Acute otitis media, left Home Medications ?Medication ?Instructions ?Recorded ?Last Taken ?Type multivitamin no.47-iron fum 27 1 cap PO DAILY 04/05/24 10/03/24 History mg-folate no.1 1 mg-dha 300 mg capsule (PNV-DHA) ondansetron 4 mg disintegrating 4 mg PO Q6H PRN nausea and 07/18/24 10/02/24 Rx tablet vomiting #10 tabs sertraline 50 mg tablet (Zoloft) 50 mg PO DAILY #30 ta bs 08/07/24 10/03/24 Rx blood sugar diagnostic (Blood #120 ea 08/14/24 Unknown Rx Glucose Test strips) blood-glucose meter #1 ea 08/14/24 Unknown Rx lancets #200 ea 08/14/24 Unknown Rx ferrous sulfate 325 mg (65 mg 325 mg PO DAILY 10/03/24 10/02/24 History iron) tablet (iron) Allergy/AdvReac Type Severity Reaction Status Date / Time No Known Allergies Allergy Verified 10/03/24 15:40 Surgical History H/O emergency section History of cholecystectomy H/O dilation and curettage [place] teeth extracted Social History adopted: Yes (after parents ) household members: spouse and children number of children: 1 current occupational status: unemployed current occupational exposures/hazards: No pets and animals: Yes pets and animals: dog(s) history of recent travel: No sexually active: Yes Smoking Status: Current every day smoker tobacco type: e-cigarettes quit status: considering quitting alcohol intake: never substance use type: marijuana well-balanced diet: daily or most days caffeine: No eating out: 1-3 times/week during the past year weight has: decreased > 10 lbs what type of physical activity do you participate in: walking frequency: daily duration: 45-60 minutes/day jessika/judaism: Anabaptist seatbelt use: sometimes do you feel safe at home: Yes additional social history: Dwayne History 3 Elective abortions 1 Hx Para 1 Spontaneous abortions Hx # Term Pregnancies Ectopic pregnancies Hx # Pregnancies Multiple births # of living children 1 Past Pregnancies Del. Date Name GA/Weeks Outcome Route Bth Weight Gen Labor Lgth Anesthesia Del Locatn Provider FOB 12/19/19 Nuvia 40 live - full term 6#4oz Female epidural [place] Dwayne Delivery Date: 12/19/19 Last Updated by: Angelika Jeronimo emergency c section, decels,cord around neck, meconium Visit Details Expected Delivery Route/Plan RLTCS at [facility] Labor Preferences- CB/BF classes: [] labor support person: [] labor intervention preferences: [] pain management options preferred: [] cut cord/dad catch: [] : [] PP control planned: [] discussed possible routes of delivery and associated risks: [] special requests: [] Plans Covid status: [] Flu vaccine: [] Tdap vaccine: given Rhogam: [] LARC form signed: [] Problem list reviewed and updated with the most current plan of care details and appropriate orders placed. Relevant counseling for the gestational age provided. Continue routine care and follow up unless otherwise noted in visit notes/problem list details OB Flowsheet Initial Weight: Not Recorded Date -?-?-?-?-?-?-?-?-?-?-?-?- EGA Weight BP Urine Prot -?-?-?-?-?-?-?-?-?-?-?-?- Glucose FHR FuHt Pres Dilation -?-?-?-?-?-?-?-?-?-?-?-?- Effaced St Visit Note 04/15/24 -?-?-?-?-?-?-?-?-?-?-?-?- 10w 5d 134 lb 8 oz 133/74 -?-?-?-?-?-?-?-?-?-?-?-?- 165 -?-?-?-?-?-?-?-?-?-?-?-?- JV- CRL is 3.85. measuring over a week off from LMP per [email or web address] CRL measurement. new armen given. declines NIPT. Wants to consider . 05/13/24 -?-?-?-?-?-?-?-?-?-?-?-?- 14w 5d 140 lb 115/75 Negative -?-?-?-?-?-?-?-?-?-?-?-?- Negative 155 -?-?-?-?-?-?-?-?-?-?-?-?- KW- no vb/crampi ng. MFM US ordered. NIPT today. wants repeat c/s 06/14/24 -?-?-?-?-?-?-?-?-?-?-?-?- 19w 2d 141 lb 122/84 Negative -?-?-?-?-?-?-?-?-?-?-?-?- Negative 145 -?-?-?-?-?-?-?-?-?-?-?-?- KW- no vb/crampi ng. possible fm noted. US on 06/18. 06/19/24 -?-?-?-?-?-?-?-?--?-?-?-?- 20w 0d 140 lb 4 oz 111/71 -?-?-?-?-?-?-?-?-?-?-?-?- -?-?-?-?-?-?-?-?-?-?-?-?- SM- new diagnosi s of gastroscheis- had extensive discussion and provided counseling and education 07/11/24 -?-?-?-?-?-?-?-?-?-?-?-?- 23w 1d 143 lb 6 oz 114/73 Nega tive -?-?-?-?-?-?-?-?-?-?-?-?- Negative 145 -?-?-?-?-?-?-?-?-?-?-?-?- SM- no vb lof go od fm no reuglar ctx will start zoloft, kalee malone 08/07/24 -?-?-?-?-?-?-?-?-?-?-?-?- 27w 0d 145 lb 118/68 Negative -?-?-?-?-?-?-?-?-?-?-?-?- Negative 140 26 -?-?-?-?-?-?-?-?-?-?-?-?- MH-No VB, LOF. G ood FM. Needs Rx to start zoloft/sent. Continues follow up with MFM and will CARMELO at 32 wk 08/26/24 -?-?-?-?-?-?-?-?-?-?-?-?- 29w 5d 147 lb 95/63 Negative -?-?-?-?-?-?-?-?-?-?-?-?- Negative 140 29 -?-?-?-?-?-?-?-?-?-?-?-?- SM- no vb lof go od fm no regular ctx SM- no vb lof good fm no reg ular ctx co lower pelvic pain SM- no vb lof good fm no reg ular ctx co lower pelvic pain will rule out UTI. reocmmend CARMELO now due to IUGR diagnosis now also. SM- no vb lof good fm no reg ular ctx co lower pelvic pain will rule out UTI. reocmmend CARMELO now due to IUGR diagnosis now also. reviewed BS and looks like GDM recommend nutrition consult. 09/10/24 -?-?-?-?-?-?-?-?-?-?-?-?- 31w 6d 146 lb 118/69 Negative -?-?-?-?-?-?-?-?-?-?-?-?- Negative 140 32 -?-?-?-?-?-?-?-?-?-?-?-?- SM- no vb lof go od fm nor egular ctx some keanu wills ROS Constitutional Constitutional: Reports systems reviewed and no addt'l complaints, except as documented Gastrointestinal Gastrointestinal: Denies bloating, constipation, cramping, diarrhea, nausea or vomiting Genitourinary Genitourinary: Reports other Details: Denies vaginal odor, vaginal bleeding, or vaginal discharge ; Denies difficulty urinating or flank pain NST FHR Rate Baby A Baseline: 130- 140 Variability:: Moderate Accelerations:: 15 x 15 Decelerations:: None NST Reactive:: Yes FHR Category:: Category I Assessment & Plan (1) Dysuria: (2) IUGR (intrauterine growth restriction) affecting care of mother: COMMENT: AC 9 percentile, recommend CARMELO now. (3) Gestational diabetes mellitus (GDM): COMMENT: reviewed blood sugars and made diagnosis based on those. recommend nutrition consult and follow up with MFM (4) Anemia affecting : (5) Abnormal glucose affecting : COMMENT: unable to complete 3 hr GTT- test BS fasting & 2 hr PP (6) Threatened labor: (7) Gastroschisis of fetus in [place] , antepartum: COMMENT: following with treatment center, planning delivery in [place]. CARMELO at 30 weeks due to new IUGR diagnosis also. (8) Anxiety and depression: COMMENT: restart zoloft at 50 mg 08/07/24 (9) Cigarette smoker: COMMENT: 5 cigarettes/day (10) Marijuana use during : COMMENT: one time a week ago for nausea, random tox screens discussed (11) Hx of section: COMMENT: plan RLTCS (12) Supervision of high-risk : QUALIFIERS: Trimester: third trimester Qualified Code(s): O09.93 - Supervision of high risk , unspecified, third trimester COMMENT: [id number], ARMEN 11/14/24, AMBAR Pedersen, Dwayne (13) : QUALIFIERS: Weeks of gestation: 31 weeks Qualified Code(s): Z3A.31 - 31 weeks gestation of COMMENT: NIPT low risk, declines carrier PLAN: Plan NST is reactive, bpp8/10 ok to dc to home Charges/Coding Multi Select Codes Urinary/Genital Urinary/Genital CPT Codes: 94808-01 non-stress test Interp
== END 2024-10-03 16:30 | disposition home or self-care (01) ==
LOC: WPOUT 15:18 → WP 15:19
PROVIDERS: Referring Provider Obstetrics & Gynecology; Visit Provider Obstetrics & Gynecology
DX: O09.93 Supervision of high risk pregnancy, unspecified, third trimester (principal); Z3A.35 35 weeks gestation of pregnancy; O99.891 Other specified diseases and conditions complicating pregnancy; R30.0 Dysuria; O36.5930 Maternal care for other known or suspected poor fetal growth, third trimester, not applicable or unspecified; O24.419 Gestational diabetes mellitus in pregnancy, unspecified control; O99.013 Anemia complicating pregnancy, third trimester; O47.03 False labor before 37 completed weeks of gestation, third trimester; Q79.3 Gastroschisis; O99.343 Other mental disorders complicating pregnancy, third trimester; F41.8 Other specified anxiety disorders; O99.333 Smoking (tobacco) complicating pregnancy, third trimester; O99.323 Drug use complicating pregnancy, third trimester; F12.99 Cannabis use, unspecified with unspecified cannabis-induced disorder
CPT/HCPCS: 59025; 59050; 99221; G0378

== ENCOUNTER → 2025-01-30 | Outpatient (CLI) | payer MEDICAID, SELFPAY | END | disposition home or self-care (01) | LOC: BWCLAB 15:39 | PROVIDERS: Referring Provider Nurse Practitioner Family; Visit Provider Nurse Practitioner Family | DX: Z12.4 Encounter for screening for malignant neoplasm of cervix (principal); N89.8 Other specified noninflammatory disorders of vagina | CPT/HCPCS: 87070; 87205; 88175; G0145 ==

== ENCOUNTER 2025-04-09 16:00 | Outpatient (RCR) | payer MEDICAID, SELFPAY | END 2025-04-09 19:00 | disposition home or self-care (01) | LOC: PT 16:00 | PROVIDERS: PCP Nurse Practitioner Family; Referring Provider Nurse Practitioner Family; Visit Provider Nurse Practitioner Family | DX: M62.838 Other muscle spasm (principal) ==

== ENCOUNTER 2025-05-09 01:43 | Emergency (ER) | payer MEDICAID, SELFPAY ==
[2025-05-09 01:44] VITALS: BP 127/90; PULSE 111; RESP 16; TEMP 37.2; O2SAT 100; BMI 35.0
--- NOTE | 2025-05-09 02:45 | RAD_ITS ---
PROCEDURE: ANKLE MIN 3 VIEWS 05/09/2025 REASON FOR EXAM: PAIN TECHNIQUE: Procedure Code: RADANK Modality: DX Procedure: ANKLE MIN 3 VIEWS Laterality: Left. COMPARISON: None. FINDINGS: Soft tissue edema and swelling overlying the lateral malleolus. Normal visualized distal tibia and medial malleolus. Normal visualized distal fibula and lateral malleolus. Normal tibiotalar articulation and ankle mortise. Normal visualized talus. Normal visualized calcaneus. The visualized subtalar, talonavicular, calcaneocuboid and tarsal articulations are normal. RAD/Ankle min 3 Views IMPRESSION: Soft tissue edema and swelling overlying the lateral malleolus. Reading Location: [facility]
--- NOTE | 2025-05-09 02:45 | RAD_ITS ---
PROCEDURE: ANKLE MIN 3 VIEWS 05/09/2025 REASON FOR EXAM: PAIN TECHNIQUE: Procedure Code: RADANK Modality: DX Procedure: ANKLE MIN 3 VIEWS Laterality: Right COMPARISON: None. FINDINGS: Acute oblique mildly displaced fracture of the lateral malleolus with overlying soft tissue edema and swelling. Normal visualized distal tibia and medial malleolus. Normal tibiotalar articulation and ankle mortise. Normal visualized talus. Normal visualized calcaneus. The visualized subtalar, talonavicular, calcaneocuboid and tarsal articulations are normal. RAD/Ankle min 3 Views IMPRESSION: Acute oblique mildly displaced fracture of the lateral malleolus with overlying soft tissue edema and swelling. Reading Location: [facility]
--- NOTE | 2025-05-09 02:45 | RAD_ITS ---
PROCEDURE: FOOT MIN 3 VIEWS 05/09/2025 REASON FOR EXAM: PAIN TECHNIQUE: Procedure Code: RADFO Modality: DX Procedure: FOOT MIN 3 VIEWS Laterality: Right COMPARISON: None. FINDINGS: Acute oblique displaced fracture of the lateral malleolus. Overlying soft tissue edema and swelling. Normal talus, calcaneus, and tarsal bones. Normal visualized subtalar, talonavicular, calcaneocuboid, tarsal and tarsometatarsal articulations. Normal metatarsi. Normal metatarsophalangeal joint of the great toe. Normal tibial and fibular sesamoid bones. Normal interphalangeal joint of the great toe. Normal phalanges of the great toe. Normal second through fifth metatarsophalangeal joints. Normal interphalangeal joints of the lesser toes. Normal phalanges of the lesser toes. RAD/Foot min 3 Views IMPRESSION: Acute oblique displaced fracture of the lateral malleolus. Overlying soft tissue edema and swelling. Reading Location: [facility]
--- NOTE | 2025-05-09 04:26 | EX.ED.DYSGE1 ---
HPI History of Present Illness Chief Complaint: Fall Informant: patient and friend Narrative Narrative: Patient is a 29-year-old female with past medical history of anxiety and depression. She states shortly prior to arrival she was walking down steps outside when she missed a step and somehow rolled both the right and left ankle inward. She states after the fall she had pain in both ankles. She reports that she could bear weight on the left but not on the right. She denies striking her head or any loss of consciousness or history of bleeding disorder. However with concern for potential fracture she presents for evaluation. [facility] Medical History (Updated 05/10/25 @ 08:[address] Eugene Snyder, DO) Gestational diabetes mellitus (GDM) 16 weeks gestation of Kidney infection Hemorrhagic shock complicated by shock Elective Hemorrhage following tonsillectomy and adenoidectomy Acute otitis media, left Home Medications ?Medication ?Instructions ?Recorded ?Last Taken ?Type sertraline 100 mg tablet (Zoloft) 150 mg (1.5 x 100 mg) PO QDAY 90 12/18/24 Unknown Rx days #135 tabs benzonatate 200 mg capsule 200 mg PO TID PRN cough #20 caps 04/14/25 Unknown Rx methylprednisolone 4 mg tablets in See Rx Instructions PO PER PKG DIR 04/14/25 Unknown Rx a dose pack (Medrol (Zane)) #21 tabs oxycodone-acetaminophen 5 mg-325 1 tab PO Q6H PRN pain 5 days #20 05/09/25 Unknown Rx mg tablet (Percocet) tabs Allergy/AdvReac Type Severity Reaction Status Date / Time No Known Allergies Allergy Verified 05/09/25 01:47 Surgical History H/O emergency section History of cholecystectomy H/O dilation and curettage [place] teeth extracted Social History (Updated 01/30/25 @ 13:48 by Patricia Overton NP-C) adopted: Yes (after parents ) household members: spouse and children number of children: 1 current occupational status: unemployed current occupational exposures/hazards: No pets and animals: Yes pets and animals: dog(s) history of recent travel: No sexually active: Yes Smoking Status: Current every day smoker tobacco type: e-cigarettes quit status: considering quitting alcohol intake: never substance use type: does not use well-balanced diet: daily or most days caffeine: No eating out: 1-3 times/week during the past year weight has: decreased > 10 lbs what type of physical activity do you participate in: walking frequency: daily duration: 45-60 minutes/day jessika/latter day: Scientologist seatbelt use: sometimes do you feel safe at home: Yes additional social history: Dwayne ALMEIDA ED Constitutional Constitutional ED: Denies chills or fever(s) Eyes Eyes: Denies blurry vision or change in vision Cardiovascular Cardiovascular: Reports other Details: Negative syncope ; Denies chest pain Respiratory/Chest Respiratory/Chest: Denies cough or dyspnea Gastrointestinal Gastrointestinal: Denies abdominal pain, diarrhea, nausea or vomiting Genitourinary Genitourinary ED: Reports dysuria Musculoskeletal Musculoskeletal: Reports other Details: Positive bilateral ankle pain ; Denies back pain or neck pain Integumentary Denies Abrasions Neurologic Neurologic: Denies headache(s) Hematologic/Lymphatic Hematologic/Lymphatic: Denies easy bleeding or easy bruising EXAM Physical Exam Const Vital Signs: 05/09/25 01:44 05/09/25 01:48 Temperature 98.9 F Temperature Source Oral Pulse Rate 111 H Respiratory Rate 16 Respiratory Effort Normal Respiratory Depth Normal Respiratory Pattern Normal Blood Pressure 127/90 H Blood Pressure Mean 102 Pulse Ox 100 Oxygen Delivery Method Room Air Positive well nourished and well developed General Appearance ED: well developed; Negative for pallor HEENT HEENT Narrative: Normocephalic atraumatic No signs of depressed or basilar skull fracture Eyes PERRL and EOMs intact bilaterally General Eye ED: Negative for scleral icterus Neck supple Neck Narrative: No bony deformity or step-off of the cervical spine No midline tenderness to palpation Resp normal respiratory effort and clear to auscultation bilaterally Cardio regular rate and regular rhythm Back/Spine Back/Spine Narrative: No bony deformity or step-off of the thoracic or lumbar spine No midline tenderness to palpation Extremity Extremity Narrative: Bilateral lower extremities are neurovascularly intact There is soft tissue swelling along the lateral malleolus of both the right and left ankle however it is greatest on the right. Achilles tendon is intact and ankle ligaments are stable bilaterally. No pain with palpation of the proximal tibia bilaterally. There is mild pain with palpation along the right fifth metatarsal. No pain with palpation of the left foot. Active and passive range of motion is limited secondary to pain No findings of trauma such as long bone injury or joint effusion or bony deformity to the upper extremities Neuro oriented x3, CN's II-XII intact bilaterally and no sensory deficits noted Sensorium / Orientation: alert Psych mental status grossly normal Skin no rashes or lesions noted and no wounds General Skin Exam: Negative for jaundice or pallor MDM MDM MDM Narrative Medical decision making narrative: Patient arrived to the ER and reported a mechanical fall and therefore I felt no need for cardiac or syncope workup. There was no report or signs of head trauma so I low concern for skull fracture versus traumatic subarachnoid or subdural hemorrhage and I felt no need for head CT. With pain along the bilateral ankles and right foot there is concern for potential ankle fracture or metatarsal fracture so imaging studies/x-rays were ordered. Left ankle x-ray revealed soft tissue swelling without acute fracture or dislocation. X-rays of the right ankle and foot showed a distal fibular fracture. However the patient is closed and neurovascularly intact and therefore there is no need for emergent orthopedic or podiatry consultation. There is also no pain with palpation of the proximal tibia going against a [place] fracture and patient has no findings to suggest compartment syndrome. Also physical exam does not suggest a tendon tear such as an Achilles tendon injury. therefore the patient was placed in a stirrup splint to stabilize her fracture as documented below and is otherwise safe for discharge. Patient was placed in a Ortho-Glass stirrup splint to the right ankle. The stirrup splint fit the fracture fragment good approximation and stabilization. After application capillary refill remained less than 3 seconds. Patient tolerated procedure well without complication. History & Record Review Discussion w/independent historian: Patient and Friend Radiography Diagnostic Testing: Clinical Impression(s) from Imaging Studies Ankle X-Ray 05/09/25 02:45 IMPRESSION: Acute oblique mildly displaced fracture of the lateral malleolus with overlying soft tissue edema and swelling. Reading Location: [id number] Ankle X-Ray 05/09/25 02:45 IMPRESSION: Soft tissue edema and swelling overlying the lateral malleolus. Reading Location: [id number] Foot X-Ray 05/09/25 02:45 IMPRESSION: Acute oblique displaced fracture of the lateral malleolus. Overlying soft tissue edema and swelling. Reading [facility] X-ray of the right ankle as interpreted by the emergency medicine physician reveals an oblique fracture across the lateral malleolus X-ray of the left ankle as interpreted by the emergency medicine physician shows soft tissue swelling without acute fracture or dislocation X-ray of the right foot as interpreted by the emergency medicine physician redemonstrates the distal fibular fracture but no sign of metatarsal fracture Discharge Plan Triage Chief Complaint: Fall ED Provider: Eugene Snyder Dx/Rx/DC Orders Clinical Impression: Closed fracture of distal end of right fibula, Anxiety and depression, Accidental fall Instructions: ED Fiberglass Splint Care, ED Ankle Fracture, Distal Fibula Prescriptions: New oxycodone-acetaminophen [Percocet] 5-325 mg tablet 1 tab PO Q6H PRN (Reason: pain) 5 Days Qty: 20 0RF No Action sertraline [Zoloft] 100 mg tablet 150 mg PO QDAY 90 Days Qty: 135 4RF methylprednisolone [Medrol (Zane)] 4 mg tablets,dose pack See Rx Instructions PO PER PKG DIR Qty: 21 0RF Rx Instructions: PO PER PKG DIR benzonatate 200 mg capsule 200 mg PO TID PRN (Reason: cough) Qty: 20 0RF Stand Alone Forms: ED Work / School Excuse Primary Care Provider: Lety Cassidy Referrals: [place] DPM [Med Staff - Active Staff, Podiatry] Referral Note: Right distal fibula fracture Lety Cassidy, [employer]-C [Primary Care Provider, Family Practice] Activity Restrictions/Additional Instructions: Please keep your splint on for stabilization and ambulate using your crutches. Follow-up with podiatry to discuss further treatment such as casting versus walking boot versus surgery regarding your ankle fracture and return to the ER should you have any further concerns. Print Language: German Disposition Disposition: Home, Self Care Discharge Date/Time: 05/09/25 04:55
[2025-05-09 04:55] VITALS: BP 142/68; PULSE 69; RESP 18; TEMP 36.7; O2SAT 97
== END 2025-05-09 04:55 | disposition home or self-care (01) ==
PROVIDERS: Emergency Provider Emergency Medicine; PCP Nurse Practitioner Family; Visit Provider Emergency Medicine
DX: S82.831A Other fracture of upper and lower end of right fibula, initial encounter for closed fracture (principal); F41.9 Anxiety disorder, unspecified; W10.9XXA Fall (on) (from) unspecified stairs and steps, initial encounter; F32.A Depression, unspecified; Z90.49 Acquired absence of other specified parts of digestive tract; F17.290 Nicotine dependence, other tobacco product, uncomplicated
CPT/HCPCS: 29515; 73610; 73630; 96372; 99284

== ENCOUNTER → 2025-06-09 | Outpatient (CLI) | payer MEDICAID, SELFPAY ==
[2025-06-09 12:03] LABS: Hematocrit 38.4 % (37-47); Hemoglobin 12.6 g/dL (12.0-15.0); Immature Granulocytes Count 0.060 X10^3/uL (0.0-0.0); Mean Corp Hgb Conc 32.8 g/dL (32-36); Mean Corpuscular Volume 84.2 fL (81-99); Mean Platelet Vol. 9.9 fl (6.2-12.0); NRBC Flagged by Analyzer 0 % (0-5); Platelet Count 421 K/mm3 (150-450); RBC Distribution Width CV 13.2 % (11.6-14.6); RBC Distribution Width SD 41.0 fl (35.1-43.9); Red Blood Count 4.56 M/mm3 (4.2-5.4); White Blood Count 8.1 K/mm3 (4.4-11.0)
[2025-06-09 12:46] LABS: AST(SGOT) 32 U/L (<=31); Alanine Aminotransfer ALT/SGPT 53 U/L (<=34); Albumin, Serum 4.4 g/dL (3.5-5.0); Alkaline Phosphatase 99 U/L (35-104); Anion Gap 12 (5-15); BUN 8 mg/dL (4-19); BUN/Creat Ratio 16.6 RATIO (10-20); Calcium,Total 9.6 mg/dL (7.6-11.0); Carbon Dioxide 24.4 mmol/L (21.0-32.0); Chloride 103 mmol/L (98-108); Cholesterol 178 mg/dL (<=200); Globulin 3.1 g/dL (2.2-4.2); Glucose 94 mg/dL (70-99); Low Density Lipoprotein Calc. 90 mg/dL; Potassium 4.1 mmol/L (3.3-5.1); Triglycerides 304 mg/dL; Very Low Density Lipoprotein 61 mg/dL (5-40); Vitamin D,25 Hydroxy 13.9 ng/mL (30-100); cholesterol:hdl ratio screen 4.73
[2025-06-09 12:47] LABS: FOLATES,SERUM (FOLIC ACID) 18.30 ng/mL (4.60-34.80)
[2025-06-09 13:10] LABS: Iron 55 ug/dL (50-170); Iron Binding Capacity,Total 425 ug/dL (250-450); Iron Binding Capacity,Unsat 370 ug/dL (228-428)
== END | disposition home or self-care (01) ==
LOC: VSLAB 10:27
PROVIDERS: PCP Nurse Practitioner Family; Referring Provider Nurse Practitioner; Visit Provider Nurse Practitioner
DX: F41.1 Generalized anxiety disorder (principal)
CPT/HCPCS: 36415; 80053; 80061; 82306; 82746; 83540; 83550; 84443; 85025

== ENCOUNTER → 2025-06-20 | Outpatient (CLI) | payer MEDICAID, SELFPAY ==
--- NOTE | 2025-06-20 16:41 | MRI_ITS ---
PROCEDURE: LOWER EXT JOINT ONLY (ROUTINE) 06/20/2025 REASON FOR EXAM: LEFT ANKLE PAIN AND SPRAIN TECHNIQUE: Procedure Code: MRILEJ Modality: MR Procedure: LOWER EXT JOINT ONLY (ROUTINE) Multiplanar and multisequence images were obtained without IV contrast administration. COMPARISON: COMPARISON : Radiographs dated 05/09/2025. FINDINGS: Lack of a true axial STIR sequence and an axial T1 sequence limit evaluation. Mild fluid signal is noted adjacent to the posterior tibialis tendon and the peroneus brevis and longus tendons, compatible with mild tenosynovitis. The flexor digitorum longus, flexor hallucis longus, and tendons of the anterior ankle compartment appear unremarkable. Grossly, the anterior and posterior talofibular ligaments in the anterior and posterior tibiofibular ligaments are intact. However, lack of standard sequences limits evaluation of these structures. The deltoid ligament appears intact and unremarkable. The visualized portion of the plantar fascia is unremarkable. Mild nonspecific marrow edema is noted within the medial malleolus. Otherwise the bone marrow signal is unremarkable. Normal fat and ligament signal is noted within the sinus tarsi. No significant soft tissue swelling, edema, or fluid collection. MRI/Lower Ext Joint Only (Routine) IMPRESSION: This study is limited due to lack of typical standard sequences. Mild posterior tibialis, peroneus brevis, and peroneus longus tenosynovitis. Mild nonspecific marrow edema within the medial malleolus, possibly reactive in nature. Reading Location: [id number]
== END | disposition home or self-care (01) ==
LOC: MRI 16:37
PROVIDERS: PCP Nurse Practitioner Family; Referring Provider Podiatrist; Visit Provider Podiatrist
DX: S93.492D Sprain of other ligament of left ankle, subsequent encounter (principal); M25.572 Pain in left ankle and joints of left foot
CPT/HCPCS: 73721